=== PATIENT | male | born 1945 | race Caucasian/White ===

== ENCOUNTER 2018-10-21 23:28 | Inpatient (IN) | payer OTHER ==
[~2018-10-21] VITALS: Ht 175.3 cm; Wt 83.0 kg
[2018-10-22] MEDS ORDERED: ACET500T76 PO (02:05)
[2018-10-22] MEDS ORDERED: ALLO100T30 PO (02:06)
[2018-10-22] MEDS ORDERED: AMLO10TA8 PO (02:07)
[2018-10-22] MEDS ORDERED: BUPR200T31 PO (02:09)
[2018-10-22] MEDS ORDERED: COLC0.6T37 PO (02:10)
[2018-10-22] MEDS ORDERED: CYAN500L4 PO (02:18)
[2018-10-22] MEDS ORDERED: CYCL15CA21 PO (02:19)
[2018-10-22] MEDS ORDERED: FOLI-17 PO (02:20)
[2018-10-22] MEDS ORDERED: GABA300C10 PO (02:21)
[2018-10-22] MEDS ORDERED: LOSA1TAB7 PO (02:23)
[2018-10-22] MEDS ORDERED: NICO-487 TD (02:24)
[2018-10-22] MEDS ORDERED: PANT40GR PO (02:26)
[2018-10-22] MEDS ORDERED: PRED5TAB19 PO (02:27)
[2018-10-22] MEDS ORDERED: THIA100V3 PO (02:28)
[2018-10-22] MEDS ORDERED: TRAZ-96 PO (02:29)
[2018-10-22] MEDS ORDERED: PLEASE ENTER HEIGHT AND WEIGHT MC SCH (02:30)
[2018-10-22 03:17] VITALS: BP 159/89
[2018-10-22] MEDS: HEPARIN 5,000 UNITS/ML, 1ML SQ SCH ×3 (04:06→18:06)
[2018-10-22 06:29] VITALS: BP 161/87
[2018-10-22] MEDS ORDERED: PANTOPRAZOLE GRAN. PKT 40 MG PO PRN (06:30)
[2018-10-22] MEDS ORDERED: COLCHICINE 0.6 MG TABLET PO PRN (06:30)
[2018-10-22] MEDS ORDERED: ALLOPURINOL 100 MG TABLET PO PRN (06:30)
[2018-10-22 08:02] LABS: BASOPHILS # (AUTO) 0.03 x10^3/uL (0-0.1); BASOPHILS % (AUTO) 1 % (0-1); EOSINOPHILS # (AUTO) 0.07 x10^3/uL (0-0.4); EOSINOPHILS % (AUTO) 2 % (1-7); LYMPHOCYTES # (AUTO) 1.11 x10^3/uL (1-3.4); LYMPHOCYTES % (AUTO) 26 % (22-44); MD NO; MEAN CORPUSCULAR HEMOGLOBIN 34.5 pg (27.5-34.5); MEAN CORPUSCULAR HGB CONC 33.5 g/dL (33.2-36.2); MEAN CORPUSCULAR VOLUME 103.2 fL (81-97); MEAN PLATELET VOLUME 8.3 fL (7.4-10.4); MONOCYTES % (AUTO) 9 % (2-9); NEUTROPHILS # (AUTO) 2.71 x10^3/uL (1.8-6.8); NEUTROPHILS % (AUTO) 63 % (42-75); PLATELET COUNT 112 x10^3/uL (130-400); RED BLOOD COUNT 3.91 x10^6/uL (4.38-5.82); RED CELL DISTRIBUTION WIDTH 16.1 % (9.4-14.8)
[2018-10-22 08:12] LABS: ALANINE AMINOTRANSFERASE 25 U/L (12-78); ALBUMIN 3.2 g/dL (3.4-5.0); ANION GAP 6 mmol/L (5-15); CALCIUM 8.6 mg/dL (8.5-10.1); CHLORIDE 103 mmol/L (98-107); CREATININE 0.88 mg/dL (0.7-1.3)
[2018-10-22 08:14] LABS: ALKALINE PHOSPHATASE 132 U/L (45-117); BILIRUBIN,TOTAL 1.1 mg/dL (0.2-1.0)
[2018-10-22] MEDS: ONDANSETRON ODT 4 MG PO PRN (09:26)
[2018-10-22] MEDS: CYANOCOBALAMIN 1,000 MCG TABLET PO PRN (09:27)
[2018-10-22] MEDS: BUPROPION SR 150 MG TABLET PO PRN (09:27)
[2018-10-22] MEDS: FOLIC ACID 1 MG TABLET PO PRN (09:27)
[2018-10-22] MEDS: AMLODIPINE 10 MG TAB PO SCH (09:27)
[2018-10-22] MEDS: OXYcodone IR 5MG TABLET PO PRN ×2 (09:41→18:06)
[2018-10-22 11:19] VITALS: BP 178/95
[2018-10-22] MEDS ORDERED: hydrALAzine 20 MG/ML, 1ML IV PRN (13:30)
[2018-10-22] MEDS: NICOTINE 14MG/24 HR PATCH.TD24 TD SCH (15:01)
[2018-10-22] MEDS: THIAMINE 100MG TABLET PO SCH (15:01)
[2018-10-22] MEDS ORDERED: MAGNESIUM SULFATE 3 GM in SODIUM CHLORIDE 0.9% 100 ML IV ONE (16:00)
[2018-10-22] MEDS ORDERED: LORazepam 1MG TABLET PO PRN ×2 (17:30)
[2018-10-22 19:56] VITALS: BP 147/91
[2018-10-22] MEDS: LORazepam 1MG TABLET PO PRN ×2 (21:26→22:06)
[2018-10-23] MEDS: LORazepam 0.5MG TABLET PO PRN (01:02)
[2018-10-23 01:03] VITALS: BP 153/95
[2018-10-23] MEDS: HEPARIN 5,000 UNITS/ML, 1ML SQ SCH ×3 (02:00→17:10)
[2018-10-23] MEDS: LORazepam 1MG TABLET PO PRN ×6 (02:57→23:10)
[2018-10-23 05:22] LABS: BASOPHILS # (AUTO) 0.01 x10^3/uL (0-0.1); BASOPHILS % (AUTO) 0 % (0-1); EOSINOPHILS # (AUTO) 0.11 x10^3/uL (0-0.4); EOSINOPHILS % (AUTO) 2 % (1-7); LYMPHOCYTES # (AUTO) 1.71 x10^3/uL (1-3.4); LYMPHOCYTES % (AUTO) 32 % (22-44); MD NO; MEAN CORPUSCULAR HEMOGLOBIN 34.8 pg (27.5-34.5); MEAN CORPUSCULAR HGB CONC 33.8 g/dL (33.2-36.2); MEAN CORPUSCULAR VOLUME 102.9 fL (81-97); MEAN PLATELET VOLUME 8.3 fL (7.4-10.4); MONOCYTES # (AUTO) 0.32 x10^3/uL (0.2-0.8); MONOCYTES % (AUTO) 6 % (2-9); NEUTROPHILS # (AUTO) 3.15 x10^3/uL (1.8-6.8); NEUTROPHILS % (AUTO) 60 % (42-75); PLATELET COUNT 119 x10^3/uL (130-400); RED BLOOD COUNT 4.15 x10^6/uL (4.38-5.82); RED CELL DISTRIBUTION WIDTH 15.4 % (9.4-14.8)
[2018-10-23 05:28] LABS: CHLORIDE 96 mmol/L (98-107)
[2018-10-23 05:34] LABS: ALANINE AMINOTRANSFERASE 24 U/L (12-78); ALBUMIN 3.5 g/dL (3.4-5.0); ALKALINE PHOSPHATASE 140 U/L (45-117); ANION GAP 5 mmol/L (5-15); BILIRUBIN,TOTAL 1.2 mg/dL (0.2-1.0); CREATININE 0.87 mg/dL (0.7-1.3); TOTAL PROTEIN 6.6 g/dL (6.4-8.2)
--- NOTE | 2018-10-23 06:08 | NUR ---
JONATHAN HAIRSTON H - Fall Risk Medications present and NOT receiving anticoagulants.
[2018-10-23] MEDS ORDERED: POTASSIUM CHLORIDE 20 MEQ TAB.ER.PRT PO ONE (07:00)
[2018-10-23 07:03] VITALS: BP 155/98
[2018-10-23 07:40] VITALS: BP 155/102
[2018-10-23 08:00] VITALS: BP 154/97
[2018-10-23] MEDS: FOLIC ACID 1 MG TABLET PO PRN (08:19)
[2018-10-23] MEDS: AMLODIPINE 10 MG TAB PO SCH (08:19)
[2018-10-23] MEDS: ONDANSETRON ODT 4 MG PO PRN ×2 (08:19→14:54)
[2018-10-23] MEDS: BUPROPION SR 150 MG TABLET PO PRN (08:19)
[2018-10-23] MEDS: CYANOCOBALAMIN 1,000 MCG TABLET PO PRN (08:20)
[2018-10-23] MEDS: THIAMINE 100MG TABLET PO SCH (08:20)
[2018-10-23] MEDS: NICOTINE 14MG/24 HR PATCH.TD24 TD SCH (14:54)
[2018-10-23 18:34] VITALS: BP 162/96
[2018-10-23 23:16] VITALS: BP 139/102
[2018-10-24 02:22] VITALS: BP_SYST 164; BP_SYST 193; BP_DIAS 109; BP_DIAS 118
[2018-10-24 02:40] VITALS: BP 164/109
[2018-10-24] MEDS: HEPARIN 5,000 UNITS/ML, 1ML SQ SCH ×3 (03:07→18:28)
[2018-10-24] MEDS: LORazepam 1MG TABLET PO PRN ×8 (03:08→23:37)
[2018-10-24 07:16] VITALS: BP 140/97
[2018-10-24] MEDS: THIAMINE 100MG TABLET PO SCH (07:25)
[2018-10-24] MEDS: AMLODIPINE 10 MG TAB PO SCH (07:25)
[2018-10-24] MEDS: NICOTINE 14MG/24 HR PATCH.TD24 TD SCH (13:13)
[2018-10-24 13:17] VITALS: BP 165/95
[2018-10-24 19:26] VITALS: BP 143/101
[2018-10-25 02:14] VITALS: BP 138/90
[2018-10-25] MEDS: LORazepam 1MG TABLET PO PRN ×3 (03:28→18:12)
[2018-10-25] MEDS: HEPARIN 5,000 UNITS/ML, 1ML SQ SCH ×3 (03:36→18:01)
[2018-10-25] MEDS: AMLODIPINE 10 MG TAB PO SCH (07:52)
[2018-10-25] MEDS: THIAMINE 100MG TABLET PO SCH ×4 (07:52→20:11)
[2018-10-25 08:11] VITALS: BP 148/80
[2018-10-25] MEDS: OXYcodone IR 5MG TABLET PO PRN (11:11)
[2018-10-25 13:53] VITALS: BP 137/85
[2018-10-25] MEDS: NICOTINE 14MG/24 HR PATCH.TD24 TD SCH (14:04)
[2018-10-25 19:38] VITALS: BP 130/81
[2018-10-25] MEDS: NS + 20MEQ KCL 1,000 ML IV SCH (23:14)
[2018-10-26 01:24] VITALS: BP 143/90
[2018-10-26] MEDS: HEPARIN 5,000 UNITS/ML, 1ML SQ SCH ×3 (02:00→18:00)
[2018-10-26 08:14] VITALS: BP 146/82
[2018-10-26] MEDS: NS + 20MEQ KCL 1,000 ML IV SCH ×2 (10:27→21:05)
[2018-10-26] MEDS: AMLODIPINE 10 MG TAB PO SCH (10:28)
[2018-10-26] MEDS: THIAMINE 100MG TABLET PO SCH ×3 (10:28→21:05)
[2018-10-26 11:30] LABS: BASOPHILS # (AUTO) 0.04 x10^3/uL (0-0.1); BASOPHILS % (AUTO) 1 % (0-1); EOSINOPHILS # (AUTO) 0.13 x10^3/uL (0-0.4); EOSINOPHILS % (AUTO) 2 % (1-7); LYMPHOCYTES # (AUTO) 1.08 x10^3/uL (1-3.4); LYMPHOCYTES % (AUTO) 18 % (22-44); MD NO; MEAN CORPUSCULAR HEMOGLOBIN 34.9 pg (27.5-34.5); MEAN CORPUSCULAR HGB CONC 34.2 g/dL (33.2-36.2); MEAN CORPUSCULAR VOLUME 102.3 fL (81-97); MONOCYTES # (AUTO) 0.45 x10^3/uL (0.2-0.8); MONOCYTES % (AUTO) 7 % (2-9); NEUTROPHILS # (AUTO) 4.47 x10^3/uL (1.8-6.8); NEUTROPHILS % (AUTO) 73 % (42-75); PLATELET COUNT 138 x10^3/uL (130-400); RED BLOOD COUNT 4.56 x10^6/uL (4.38-5.82); RED CELL DISTRIBUTION WIDTH 15.4 % (9.4-14.8)
[2018-10-26 12:26] LABS: ALBUMIN 3.3 g/dL (3.4-5.0); ANION GAP 5 mmol/L (5-15); CALCIUM 8.8 mg/dL (8.5-10.1); CHLORIDE 102 mmol/L (98-107); CREATININE 0.93 mg/dL (0.7-1.3)
[2018-10-26 14:00] VITALS: BP 143/94
[2018-10-26] MEDS: NICOTINE 14MG/24 HR PATCH.TD24 TD SCH (16:39)
[2018-10-26 19:47] VITALS: BP 135/82
[2018-10-26] MEDS: OXYcodone IR 5MG TABLET PO PRN (22:05)
[2018-10-27] MEDS: HEPARIN 5,000 UNITS/ML, 1ML SQ SCH ×3 (01:04→18:00)
[2018-10-27] MEDS: LORazepam 1MG TABLET PO PRN (01:04)
[2018-10-27 01:07] VITALS: BP 146/64
[2018-10-27] MEDS: NS + 20MEQ KCL 1,000 ML IV SCH ×2 (05:45→16:52)
[2018-10-27 08:10] VITALS: BP 139/71
[2018-10-27 10:24] LABS: ALBUMIN 2.9 g/dL (3.4-5.0); ANION GAP 6 mmol/L (5-15); CALCIUM 8.7 mg/dL (8.5-10.1); CHLORIDE 104 mmol/L (98-107); CREATININE 0.83 mg/dL (0.7-1.3)
[2018-10-27] MEDS: THIAMINE 100MG TABLET PO SCH ×3 (10:28→20:40)
[2018-10-27] MEDS: AMLODIPINE 10 MG TAB PO SCH (10:28)
[2018-10-27] MEDS: OXYcodone IR 5MG TABLET PO PRN (10:41)
[2018-10-27 12:58] VITALS: BP 142/63
[2018-10-27] MEDS: NICOTINE 14MG/24 HR PATCH.TD24 TD SCH (16:52)
[2018-10-27 20:01] VITALS: BP 156/91
[2018-10-28 01:50] VITALS: BP 143/90
[2018-10-28] MEDS: HEPARIN 5,000 UNITS/ML, 1ML SQ SCH ×3 (01:56→18:12)
[2018-10-28] MEDS: LORazepam 1MG TABLET PO PRN (04:05)
[2018-10-28 08:13] VITALS: BP 143/65
[2018-10-28] MEDS: AMLODIPINE 10 MG TAB PO SCH (08:40)
[2018-10-28] MEDS: OXYcodone IR 5MG TABLET PO PRN ×3 (08:40→23:23)
[2018-10-28 09:34] LABS: ALBUMIN 3.3 g/dL (3.4-5.0); ANION GAP 7 mmol/L (5-15); CALCIUM 9.1 mg/dL (8.5-10.1); CHLORIDE 98 mmol/L (98-107); CREATININE 0.83 mg/dL (0.7-1.3)
[2018-10-28] MEDS: NICOTINE 14MG/24 HR PATCH.TD24 TD SCH (14:43)
[2018-10-28] MEDS: NS + 20MEQ KCL 1,000 ML IV SCH (14:43)
[2018-10-28 14:48] VITALS: BP 136/81
[2018-10-28 19:57] VITALS: BP 139/67
[2018-10-29] MEDS: HEPARIN 5,000 UNITS/ML, 1ML SQ SCH ×3 (01:34→18:00)
[2018-10-29] MEDS: NS + 20MEQ KCL 1,000 ML IV SCH ×3 (01:34→22:25)
[2018-10-29 01:35] VITALS: BP 143/82
[2018-10-29 07:07] VITALS: BP 141/80
[2018-10-29] MEDS: AMLODIPINE 10 MG TAB PO SCH (09:05)
[2018-10-29 09:11] LABS: ALBUMIN 2.9 g/dL (3.4-5.0); ANION GAP 7 mmol/L (5-15); CALCIUM 8.4 mg/dL (8.5-10.1); CHLORIDE 103 mmol/L (98-107); CREATININE 0.86 mg/dL (0.7-1.3)
[2018-10-29 13:30] VITALS: BP 139/84
[2018-10-29] MEDS: NICOTINE 14MG/24 HR PATCH.TD24 TD SCH (15:34)
[2018-10-29 20:09] VITALS: BP 138/88
[2018-10-29] MEDS: CALCIUM CARBONATE 500 MG TAB.CHEW PO PRN (22:23)
[2018-10-30 00:55] LABS: CLOSTRIDIUM DIFFICILE ANTIGEN NEGATIVE; CLOSTRIDIUM DIFFICILE TOXIN NEGATIVE (Negative)
[2018-10-30 01:07] VITALS: BP 137/76
[2018-10-30] MEDS: HEPARIN 5,000 UNITS/ML, 1ML SQ SCH ×3 (02:15→17:13)
[2018-10-30] MEDS: CALCIUM CARBONATE 500 MG TAB.CHEW PO PRN ×2 (04:16→12:37)
[2018-10-30] MEDS: ONDANSETRON ODT 4 MG PO PRN (04:25)
[2018-10-30 09:38] VITALS: BP 121/70
[2018-10-30 09:59] LABS: ANION GAP 7 mmol/L (5-15); CALCIUM 8.8 mg/dL (8.5-10.1); CHLORIDE 101 mmol/L (98-107); CREATININE 0.89 mg/dL (0.7-1.3)
[2018-10-30] MEDS: AMLODIPINE 10 MG TAB PO SCH (10:34)
[2018-10-30] MEDS: NS + 20MEQ KCL 1,000 ML IV SCH ×2 (10:34→21:27)
[2018-10-30] MEDS ORDERED: SODIUM BICARBONATE 4.0%, 5ML ONE (11:05)
[2018-10-30] MEDS ORDERED: LIDOCAINE-MPF 1%, 5ML ONE (11:05)
[2018-10-30 13:08] LABS: GLUCOSE, CSF 58 mg/dL (40-80); TOTAL PROTEIN,CSF 40 mg/dL (15-45)
[2018-10-30] MEDS: ACETAMINOPHEN 325 MG TABLET PO PRN (17:12)
[2018-10-30] MEDS: NICOTINE 14MG/24 HR PATCH.TD24 TD SCH (17:14)
[2018-10-30 18:06] VITALS: BP 130/61
[2018-10-30 20:10] VITALS: BP 135/64
[2018-10-31 02:08] VITALS: BP 129/76
[2018-10-31] MEDS: HEPARIN 5,000 UNITS/ML, 1ML SQ SCH ×3 (02:11→18:11)
[2018-10-31 05:36] LABS: ALBUMIN 3.2 g/dL (3.4-5.0); ANION GAP 6 mmol/L (5-15); CALCIUM 8.6 mg/dL (8.5-10.1); CHLORIDE 101 mmol/L (98-107); CREATININE 0.89 mg/dL (0.7-1.3)
[2018-10-31] MEDS: AMLODIPINE 10 MG TAB PO SCH (08:13)
[2018-10-31] MEDS: NS + 20MEQ KCL 1,000 ML IV SCH ×2 (08:14→20:04)
[2018-10-31 08:39] VITALS: BP 127/72
[2018-10-31] MEDS: ACETAMINOPHEN 325 MG TABLET PO PRN (09:18)
[2018-10-31] MEDS: ONDANSETRON ODT 4 MG PO PRN (14:28)
[2018-10-31 14:36] VITALS: BP 125/74
[2018-10-31] MEDS: NICOTINE 14MG/24 HR PATCH.TD24 TD SCH (17:03)
[2018-10-31 19:13] VITALS: BP 128/74
[2018-11-01 01:32] VITALS: BP 136/87
[2018-11-01] MEDS: HEPARIN 5,000 UNITS/ML, 1ML SQ SCH ×3 (02:12→17:59)
[2018-11-01] MEDS: NS + 20MEQ KCL 1,000 ML IV SCH ×3 (03:23→23:22)
[2018-11-01 08:28] VITALS: BP 148/77
[2018-11-01] MEDS: AMLODIPINE 10 MG TAB PO SCH (09:40)
[2018-11-01] MEDS: THIAMINE 100MG TABLET PO SCH (09:40)
[2018-11-01] MEDS: ONDANSETRON ODT 4 MG PO PRN ×2 (14:19→20:16)
[2018-11-01 14:22] VITALS: BP 142/77
[2018-11-01] MEDS: NICOTINE 14MG/24 HR PATCH.TD24 TD SCH (17:59)
[2018-11-01] MEDS: BUPROPION SR 150 MG TABLET PO PRN (20:16)
[2018-11-01 20:30] VITALS: BP 145/71
[2018-11-02 01:47] VITALS: BP 145/78
[2018-11-02] MEDS: HEPARIN 5,000 UNITS/ML, 1ML SQ SCH ×3 (02:48→17:30)
[2018-11-02] MEDS: ONDANSETRON ODT 4 MG PO PRN (03:40)
[2018-11-02 06:35] VITALS: BP 130/68
[2018-11-02] MEDS: THIAMINE 100MG TABLET PO SCH (10:48)
[2018-11-02] MEDS: AMLODIPINE 10 MG TAB PO SCH (10:48)
[2018-11-02 12:35] VITALS: BP 136/71
[2018-11-02] MEDS: NICOTINE 14MG/24 HR PATCH.TD24 TD SCH (17:30)
[2018-11-02 19:33] VITALS: BP 129/67
[2018-11-03 01:22] VITALS: BP 133/74
[2018-11-03] MEDS: BUPROPION SR 150 MG TABLET PO PRN (02:24)
[2018-11-03] MEDS: HEPARIN 5,000 UNITS/ML, 1ML SQ SCH ×3 (02:24→16:56)
[2018-11-03 07:12] VITALS: BP 121/66
[2018-11-03] MEDS: AMLODIPINE 10 MG TAB PO SCH (08:26)
[2018-11-03] MEDS: THIAMINE 100MG TABLET PO SCH (09:28)
[2018-11-03] MEDS: ONDANSETRON ODT 4 MG PO PRN ×2 (10:25→21:11)
[2018-11-03 12:38] VITALS: BP 122/69
[2018-11-03] MEDS: NICOTINE 14MG/24 HR PATCH.TD24 TD SCH (16:57)
[2018-11-03 18:40] VITALS: BP 110/58
[2018-11-04] MEDS: HEPARIN 5,000 UNITS/ML, 1ML SQ SCH ×3 (02:15→17:06)
[2018-11-04] MEDS: ACETAMINOPHEN 325 MG TABLET PO PRN (02:24)
[2018-11-04] MEDS: BUPROPION SR 150 MG TABLET PO PRN (02:24)
[2018-11-04 04:20] VITALS: BP 123/69
[2018-11-04 07:54] VITALS: BP 117/66
[2018-11-04] MEDS: THIAMINE 100MG TABLET PO SCH (09:38)
[2018-11-04] MEDS: AMLODIPINE 10 MG TAB PO SCH (09:38)
[2018-11-04] MEDS: ONDANSETRON ODT 4 MG PO PRN ×2 (10:14→22:11)
[2018-11-04 15:55] VITALS: BP 138/66
[2018-11-04] MEDS: NICOTINE 14MG/24 HR PATCH.TD24 TD SCH (17:07)
[2018-11-04 21:18] VITALS: BP 144/67
[2018-11-04] MEDS: CALCIUM CARBONATE 500 MG TAB.CHEW PO PRN (23:57)
[2018-11-05] MEDS: BUPROPION SR 150 MG TABLET PO PRN (01:25)
[2018-11-05] MEDS: HEPARIN 5,000 UNITS/ML, 1ML SQ SCH ×3 (01:33→17:33)
[2018-11-05 02:13] VITALS: BP 130/72
[2018-11-05 07:41] VITALS: BP 127/74
[2018-11-05] MEDS: THIAMINE 100MG TABLET PO SCH (08:36)
[2018-11-05] MEDS: AMLODIPINE 10 MG TAB PO SCH (08:36)
[2018-11-05] MEDS: CYANOCOBALAMIN 1,000 MCG TABLET PO PRN (08:36)
[2018-11-05] MEDS: FOLIC ACID 1 MG TABLET PO PRN (08:37)
[2018-11-05 13:41] VITALS: BP 114/63
[2018-11-05] MEDS ORDERED: THIA100T67 PO (15:43)
[2018-11-05] MEDS ORDERED: FOLI-17 PO (15:43)
[2018-11-05] MEDS ORDERED: CYAN10005 PO (15:43)
[2018-11-05] MEDS ORDERED: AMLO10TA8 PO (15:43)
[2018-11-05] MEDS ORDERED: BUPR150T73 PO (15:43)
[2018-11-05] MEDS ORDERED: ALLO100T30 PO (15:43)
[2018-11-05] MEDS ORDERED: PANT40GR PO (15:43)
[2018-11-05] MEDS ORDERED: NICO-485 TD (15:43)
[2018-11-05] MEDS ORDERED: LORazepam 0.5MG TABLET PO PRN (16:30)
[2018-11-05] MEDS: LORazepam 0.5MG TABLET PO PRN ×2 (17:57→22:31)
[2018-11-05] MEDS: NICOTINE 14MG/24 HR PATCH.TD24 TD SCH (17:57)
[2018-11-05 18:32] VITALS: BP 106/63
[2018-11-06 00:08] VITALS: BP 125/68
[2018-11-06] MEDS: HEPARIN 5,000 UNITS/ML, 1ML SQ SCH ×3 (02:29→16:50)
[2018-11-06 08:22] VITALS: BP 116/69
[2018-11-06] MEDS: NICOTINE 14MG/24 HR PATCH.TD24 TD SCH (08:34)
[2018-11-06] MEDS: LORazepam 0.5MG TABLET PO PRN ×2 (08:35→16:50)
[2018-11-06] MEDS: CYANOCOBALAMIN 1,000 MCG TABLET PO PRN (08:35)
[2018-11-06] MEDS: FOLIC ACID 1 MG TABLET PO PRN (08:35)
[2018-11-06] MEDS: THIAMINE 100MG TABLET PO SCH (08:35)
[2018-11-06] MEDS: AMLODIPINE 10 MG TAB PO SCH (08:35)
[2018-11-06 15:03] VITALS: BP 126/71
[2018-11-06 20:37] VITALS: BP 132/76
[2018-11-06] MEDS: BUPROPION SR 150 MG TABLET PO PRN (23:13)
[2018-11-07 01:58] VITALS: BP 130/72
[2018-11-07] MEDS: HEPARIN 5,000 UNITS/ML, 1ML SQ SCH ×3 (02:23→18:43)
[2018-11-07 07:21] VITALS: BP 139/76
[2018-11-07] MEDS: THIAMINE 100MG TABLET PO SCH (08:22)
[2018-11-07] MEDS: AMLODIPINE 10 MG TAB PO SCH (08:22)
[2018-11-07 14:00] VITALS: BP 140/80
[2018-11-07] MEDS: NICOTINE 14MG/24 HR PATCH.TD24 TD SCH (16:58)
[2018-11-07 18:40] VITALS: BP 131/71
[2018-11-08 00:17] VITALS: BP 124/76
[2018-11-08] MEDS: HEPARIN 5,000 UNITS/ML, 1ML SQ SCH ×3 (02:13→17:39)
[2018-11-08 07:39] VITALS: BP 143/73
[2018-11-08] MEDS: AMLODIPINE 10 MG TAB PO SCH (08:35)
[2018-11-08] MEDS: THIAMINE 100MG TABLET PO SCH (08:35)
[2018-11-08 12:52] VITALS: BP 144/71
[2018-11-08] MEDS: NICOTINE 14MG/24 HR PATCH.TD24 TD SCH (16:38)
[2018-11-08 20:58] VITALS: BP 130/51
[2018-11-09 01:30] VITALS: BP 122/69
[2018-11-09] MEDS: HEPARIN 5,000 UNITS/ML, 1ML SQ SCH ×3 (02:16→17:25)
[2018-11-09 06:40] VITALS: BP 139/72
[2018-11-09] MEDS: AMLODIPINE 10 MG TAB PO SCH (10:22)
[2018-11-09] MEDS: THIAMINE 100MG TABLET PO SCH (10:22)
[2018-11-09 12:45] VITALS: BP 123/69
[2018-11-09] MEDS: NICOTINE 14MG/24 HR PATCH.TD24 TD SCH (17:25)
[2018-11-09 19:06] VITALS: BP 125/69
[2018-11-10] MEDS: BUPROPION SR 150 MG TABLET PO PRN (00:17)
[2018-11-10] MEDS: ONDANSETRON ODT 4 MG PO PRN (00:55)
[2018-11-10 02:16] VITALS: BP 131/78
[2018-11-10] MEDS: HEPARIN 5,000 UNITS/ML, 1ML SQ SCH ×2 (02:23→08:44)
[2018-11-10] MEDS: CALCIUM CARBONATE 500 MG TAB.CHEW PO PRN (02:27)
[2018-11-10 07:23] VITALS: BP 145/75
[2018-11-10] MEDS: THIAMINE 100MG TABLET PO SCH (08:44)
[2018-11-10] MEDS: AMLODIPINE 10 MG TAB PO SCH (08:44)
[2018-11-10 14:43] VITALS: BP 138/74
== END 2018-11-10 16:37 | DRG 56 ==
LOC: 3NW 10-22 00:55
PROVIDERS: ADMIT Family Medicine; ATTEND Family Medicine
PROC: 009U3ZX Drainage of Spinal Canal, Percutaneous Approach, Diagnostic (ICD-10-PCS; principal; 2018-10-30)
PROC: B01B1ZZ Fluoroscopy of Spinal Cord using Low Osmolar Contrast (ICD-10-PCS; 2018-10-30)
DX: G91.0 Communicating hydrocephalus (principal); G93.41 Metabolic encephalopathy; E51.2 Wernicke's encephalopathy; G91.9 Hydrocephalus, unspecified; F10.10 Alcohol abuse, uncomplicated; J44.9 Chronic obstructive pulmonary disease, unspecified; M10.9 Gout, unspecified; M54.9 Dorsalgia, unspecified; R33.9 Retention of urine, unspecified; R53.81 Other malaise; D75.89 Other specified diseases of blood and blood-forming organs; E83.42 Hypomagnesemia; Z92.3 Personal history of irradiation; Z85.46 Personal history of malignant neoplasm of prostate; G62.9 Polyneuropathy, unspecified; E78.5 Hyperlipidemia, unspecified; M19.011 Primary osteoarthritis, right shoulder; E78.00 Pure hypercholesterolemia, unspecified; F03.90 Unspecified dementia, unspecified severity, without behavioral disturbance, psychotic disturbance, mood disturbance, and anxiety; F17.210 Nicotine dependence, cigarettes, uncomplicated; M51.36 Other intervertebral disc degeneration, lumbar region; R29.6 Repeated falls; R32 Unspecified urinary incontinence; W18.39XA Other fall on same level, initial encounter; Y93.89 Activity, other specified; Y92.89 Other specified places as the place of occurrence of the external cause; Y99.8 Other external cause status
CPT/HCPCS: 36415; 70450; 70551; 72125; 72128; 72131; 77003; 80053; 80069; 80307; 82607; 82945; 83735; 84157; 84443; 85025; 87070; 87205; 87252; 87324; 87529; 89051; 99285; G0378; J1644; J3475; J3480; Q0162; 92523-GN

== ENCOUNTER 2020-07-11 17:12 | Inpatient (IN) | payer MEDICAID, MEDICARE, OTHER ==
[~2020-07-11] VITALS: Ht 175.3 cm; Wt 95.7 kg
[~2020-07-11 17:12] MED LIST: ACET500T76 PO; ALLO100T30 PO; AMLO-211 PO; BUPR150T73 PO; BUPR200T31 PO; COLC0.6T37 PO; CYAN-27 PO; CYAN500L4 PO; CYCL15CA21 PO; FOLI-17 PO; GABA300C10 PO; LOSA1TAB7 PO; NICO-485 TD; NICO-587 TD; PANT40GR PO; PRED5TAB19 PO; THIA100T67 PO; THIA100V3 PO; TRAZ-96 PO
--- NOTE | 2020-07-11 17:39 | NUR ---
CONTRACT MANAGEMENT SPECIALIST: PT TO ROOM FROM WALL VIA EMS
[2020-07-11] MEDS ORDERED: LOSA100T14 PO (17:53)
[2020-07-11] MEDS ORDERED: OMEP-110 PO (17:56)
[2020-07-11] MEDS ORDERED: PRAV40TA2 PO (17:56)
[2020-07-11] MEDS ORDERED: FLUTICASONE (17:56)
[2020-07-11] MEDS ORDERED: SYMBICORT INHALER (17:57)
--- NOTE | 2020-07-11 18:04 | NUR ---
ASSUMED CARE OF PATIENT. PATIENT RESTING IN ROOM. VS STABLE. OXYGEN ON. CALL LIGHT IN PLACE. WILL CONTINUE TO MONITOR.
[2020-07-11] MEDS ORDERED: SODIUM CHLORIDE FLUSH 10ML SYR IVF ONE (18:30)
--- NOTE | 2020-07-11 19:04 | NUR ---
REPORT GIVEN TO FAUSTINO MARROQUIN
--- NOTE | 2020-07-11 19:27 | NUR ---
REPORT RECIEVED FROM FAUSTINO WALLACE. PT AMBULATED TO BSC FOR BM, CALL LIGHT WITHIN REACH
[2020-07-11] MEDS ORDERED: CEFTRIAXONE PMX 1GM/50ML 50 ML IVPB ONE (19:30)
[2020-07-11 19:34] LABS: ALANINE AMINOTRANSFERASE 10 U/L (12-78); ALBUMIN 3.1 g/dL (3.4-5.0); ANION GAP 7 mmol/L (5-15); CALCIUM 8.4 mg/dL (8.5-10.1); CHLORIDE 100 mmol/L (98-107); CREATININE 1.29 mg/dL (0.7-1.3)
[2020-07-11 19:39] LABS: ALKALINE PHOSPHATASE 120 U/L (45-117); BILIRUBIN,TOTAL 0.5 mg/dL (0.2-1.0); TOTAL PROTEIN 6.8 g/dL (6.4-8.2); TROPONIN I < 0.015 ng/mL (0.000-0.045)
[2020-07-11] MEDS ORDERED: CEFTRIAXONE PMX 1GM/50ML 50 ML ONE (19:42)
[2020-07-11 20:11] LABS: BASOPHILS % (AUTO) 1 % (0-1); EOSINOPHILS % (AUTO) 1 % (1-7); LYMPHOCYTES % (AUTO) 17 % (22-44); MEAN CORPUSCULAR HEMOGLOBIN 31.2 pg (27.5-34.5); MEAN CORPUSCULAR HGB CONC 34.9 g/dL (33.2-36.2); MEAN PLATELET VOLUME 7.6 fL (7.4-10.4); MONOCYTES % (AUTO) 8 % (2-9); NEUTROPHILS % (AUTO) 74 % (42-75); PLATELET COUNT 153 x10^3/uL (130-400); RED BLOOD COUNT 4.16 x10^6/uL (4.38-5.82); RED CELL DISTRIBUTION WIDTH 13.6 % (9.4-14.8)
[2020-07-11 20:12] LABS: MD NO
[2020-07-11] MEDS ORDERED: AZITHROMYCIN 500 MG in SODIUM CHLORIDE 0.9% 250 ML IV ONE (21:00)
--- NOTE | 2020-07-11 21:45 | NUR ---
PT MEDICATED PER EMAR, RESTING IN [facility], AWAITING HOSPITAL BED, NO OTHER NEEDS AT THIS TIME
--- NOTE | 2020-07-11 22:46 | NUR ---
PT PLACED IN HOSPITAL BED, ON ALL MONITORS
--- NOTE | 2020-07-11 23:17 | NUR ---
PT HAVING TROUBLE URINATING, PT STOOD UP GIVEN URINAL AND ATTEMPTED FOR 5 MIN, TURNED ON WATER IN ATTEMPT TO RELAX PT, AND CANNOT. PT STATES FEELING PRESSURE AND WANTS TO PEE. DR. TIERNEY STATES OK TO DO ONE TIME STRAIGHT CATH.
--- NOTE | 2020-07-11 23:31 | NUR ---
PT AGREEABLE FOR STRAIGHT CATH, PREFORMED WITH STERILE TECHNIQUE, 500 ML WAS TAKEN OUT, PT STATES FEELING MUCH BETTER, NO OTHER NEEDS AT THIS TIME
[2020-07-12] MEDS ORDERED: DOCUSATE 100 MG CAPSULE PO PRN (01:00)
[2020-07-12] MEDS ORDERED: MELATONIN 5 MG TABLET PO PRN (01:00)
[2020-07-12] MEDS ORDERED: LABETALOL 5MG/ML, 20ML IVPush PRN (01:00)
[2020-07-12] MEDS ORDERED: HEPARIN 5,000 UNITS/ML, 1ML ONE ×2 (01:18→09:41)
[2020-07-12] MEDS ORDERED: DEXAMETHASONE 4 MG/ML, 1ML ONE (01:18)
[2020-07-12] MEDS ORDERED: MELATONIN 5 MG TABLET ONE (01:20)
[2020-07-12] MEDS ORDERED: TRAZODONE 50MG TABLET ONE (01:25)
[2020-07-12] MEDS ORDERED: PHARMACY MAY ADJ FOR RENAL FX MC PRN (01:30)
[2020-07-12] MEDS: ALBUTEROL-IPRATROPIUM MDI INH INH SCH ×5 (01:30→20:16)
[2020-07-12] MEDS ORDERED: PROCHLORPERAZINE 10MG TABLET PO PRN (01:30)
[2020-07-12] MEDS: DEXAMETHASONE 4 MG/ML, 1ML IVPush SCH ×2 (01:34→17:17)
[2020-07-12] MEDS: HEPARIN 5,000 UNITS/ML, 1ML SQ SCH ×3 (01:34→17:16)
[2020-07-12] MEDS: TRAZODONE 50MG TABLET PO PRN (01:35)
--- NOTE | 2020-07-12 01:38 | NUR ---
PTMEDICATED PER EMAR, PT GIVEN SLEEPING PILL PER REQUEST. NO OTHER NEEDS AT THIS TIME
--- NOTE | 2020-07-12 03:30 | NUR ---
PT STOOD OUT OF BED TAKING OFF ALL MONITORS, AND STATED "I DONT KNOW HOW TO LIE DOWN". PT EASILY REORIENTED, PLACED BACK IN BED WITH MONITORS IN PLACE, PROVIDED WARM BLANKET, CALL LIGHT WITHIN REACH.
--- NOTE | 2020-07-12 04:53 | NUR ---
PT SLEEPING IN BED, RESP EVEN/UNLABORED, MONITORS AND CALL LIGHT IN PLACE
--- NOTE | 2020-07-12 07:09 | NUR ---
report given to caroline delgadillo
[2020-07-12 09:17] LABS: INTERNATIONAL NORMALIZED RATIO 0.99 (0.93-1.1); PROTHROMBIN TIME 10.5 Seconds (9.6-11.5)
--- NOTE | 2020-07-12 09:34 | NUR ---
DR MATTHEWS BEDSIDE
[2020-07-12] MEDS ORDERED: OMEPRAZOLE 20 MG CAPSULE.DR ONE (09:40)
[2020-07-12] MEDS ORDERED: CHOLECALCIFEROL 5,000u TAB ONE (09:40)
[2020-07-12] MEDS ORDERED: ASCORBIC ACID 500 MG TABLET ONE (09:41)
[2020-07-12] MEDS ORDERED: ZINC SULFATE 220 MG CAPSULE ONE (09:41)
[2020-07-12] MEDS: BUPROPION SR 150 MG TABLET PO PRN (09:44)
[2020-07-12] MEDS: ZINC SULFATE 220 MG CAPSULE PO SCH (09:44)
[2020-07-12] MEDS: LOSARTAN 100 MG TAB PO SCH (09:45)
[2020-07-12] MEDS: ALLOPURINOL 100 MG TABLET PO SCH (09:45)
[2020-07-12] MEDS: AMLODIPINE 10 MG TAB PO SCH (09:45)
[2020-07-12] MEDS: FOLIC ACID 1 MG TABLET PO SCH (09:45)
[2020-07-12] MEDS: OMEPRAZOLE 20 MG CAPSULE.DR PO SCH (09:45)
[2020-07-12] MEDS: ASCORBIC ACID 500 MG TABLET PO SCH ×2 (09:46→20:07)
[2020-07-12] MEDS: CHOLECALCIFEROL 5,000u TAB PO SCH (09:46)
--- NOTE | 2020-07-12 09:59 | NUR ---
PT MEDICATED PER MAR
--- NOTE | 2020-07-12 10:40 | NUR ---
REPORT FROM JANETH AT 1000. ASSUME CARE OF PT AT THAT TIME. PT RESTING, EYES CLOSED, VSS. CALL TO PHARMACY REQUESTING BREO. CALL FROM SON REQUESTING UPDATE. BREO RECEIVED, PROVIDED TO PT.
[2020-07-12] MEDS: FLUTICASONE/VILANTEROL 200-25MCG/INH INH SCH ×2 (10:41→20:08)
--- NOTE | 2020-07-12 11:16 | NUR ---
CALL FROM PT'S SISTER. PT INFORMED OF CALL. 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 PT ASSISTED WITH STANDING WITH URINAL. BED SOILED, ALL SHEETS AND BLANKETS CHANGED. PT REPOSITIONED ON BED. CALL LIGHT WITHIN REACH.
--- NOTE | 2020-07-12 12:36 | NUR ---
CALL FROM ANOTHER PT SISTER. UPDATE PROVIDED WITH PT PERMISSION. MEAL TRAY PROVIDED. CALL LIGHT WITHIN REACH.
--- NOTE | 2020-07-12 13:59 | NUR ---
PT ASSISTED WITH TOILETING AND REPOSITIONING IN BED. PT ASKING FOR SOME MONITORING DEVICES TO BE REMOVED. BERRY GROWER DISCONTINUED, BP CUFF CORD DETACHED. PULSE OX KEPT IN PLACE. AWAITING ADMIT BED.
--- NOTE | 2020-07-12 14:55 | NUR ---
ASSIST PT WITH REPOSITIONING.
--- NOTE | 2020-07-12 16:08 | NUR ---
PT ASSISTED WITH REPOSITIONING IN BED. ANOTHER CALL FROM FAMILY MEMBER, PT AWARE. CALL LIGHT WITHIN REACH. MEAL TRAY ORDERED.
--- NOTE | 2020-07-12 16:27 | NUR ---
REPORT TO [facility] READY FOR TRANSPORT.
[2020-07-12 16:58] VITALS: BP 163/73
[2020-07-12] MEDS ORDERED: DEXAMETHASONE 4 MG/ML, 5ML ONE (17:05)
[2020-07-12] MEDS: NICOTINE 14MG/24 HR PATCH.TD24 TD SCH (17:33)
[2020-07-12 18:58] VITALS: BP 167/88
[2020-07-12] MEDS: PRAVASTATIN 40 MG TABLET PO SCH (20:07)
[2020-07-13 00:42] VITALS: BP 138/66
[2020-07-13] MEDS: HEPARIN 5,000 UNITS/ML, 1ML SQ SCH ×3 (01:59→17:00)
[2020-07-13] MEDS: ALBUTEROL-IPRATROPIUM MDI INH INH SCH ×4 (05:34→20:28)
[2020-07-13 05:43] LABS: BASOPHILS % (AUTO) 1 % (0-1); EOSINOPHILS % (AUTO) 0 % (1-7); LYMPHOCYTES % (AUTO) 8 % (22-44); MEAN CORPUSCULAR HEMOGLOBIN 31.9 pg (27.5-34.5); MEAN CORPUSCULAR HGB CONC 34.7 g/dL (33.2-36.2); MONOCYTES % (AUTO) 4 % (2-9); NEUTROPHILS % (AUTO) 87 % (42-75); PLATELET COUNT 212 x10^3/uL (130-400); RED BLOOD COUNT 4.38 x10^6/uL (4.38-5.82); RED CELL DISTRIBUTION WIDTH 13.9 % (9.4-14.8)
[2020-07-13 05:48] LABS: MD NO
[2020-07-13 05:52] LABS: ANION GAP 6 mmol/L (5-15); CALCIUM 9.4 mg/dL (8.5-10.1); CHLORIDE 105 mmol/L (98-107); CREATININE 1.34 mg/dL (0.7-1.3)
[2020-07-13 06:18] VITALS: BP 166/76
[2020-07-13] MEDS ORDERED: DEXAMETHASONE 4 MG/ML, 5ML ONE (09:13)
[2020-07-13] MEDS: ASCORBIC ACID 500 MG TABLET PO SCH ×2 (09:30→20:27)
[2020-07-13] MEDS: FOLIC ACID 1 MG TABLET PO SCH (09:30)
[2020-07-13] MEDS: ALLOPURINOL 100 MG TABLET PO SCH (09:30)
[2020-07-13] MEDS: ZINC SULFATE 220 MG CAPSULE PO SCH (09:30)
[2020-07-13] MEDS: OMEPRAZOLE 20 MG CAPSULE.DR PO SCH (09:30)
[2020-07-13] MEDS: AMLODIPINE 10 MG TAB PO SCH (09:30)
[2020-07-13] MEDS: LOSARTAN 100 MG TAB PO SCH (09:30)
[2020-07-13] MEDS: CHOLECALCIFEROL 5,000u TAB PO SCH (09:31)
[2020-07-13] MEDS: FLUTICASONE/VILANTEROL 200-25MCG/INH INH SCH (09:33)
[2020-07-13] MEDS: DEXAMETHASONE 4 MG/ML, 1ML IVPush SCH (09:33)
[2020-07-13 12:46] VITALS: BP 160/78
[2020-07-13] MEDS ORDERED: ASCO500T9 PO (14:29)
[2020-07-13] MEDS ORDERED: CHOL500045 PO (14:29)
[2020-07-13] MEDS ORDERED: ZINC220C7 PO (14:29)
[2020-07-13] MEDS ORDERED: FLUT1BLS INH (14:29)
[2020-07-13] MEDS: NICOTINE 14MG/24 HR PATCH.TD24 TD SCH (20:27)
[2020-07-13] MEDS: PRAVASTATIN 40 MG TABLET PO SCH (20:28)
[2020-07-13 21:25] VITALS: BP 151/81
[2020-07-14] MEDS: HEPARIN 5,000 UNITS/ML, 1ML SQ SCH ×3 (01:15→15:48)
[2020-07-14 01:31] VITALS: BP 140/81
[2020-07-14] MEDS: ALBUTEROL-IPRATROPIUM MDI INH INH SCH ×4 (05:30→20:01)
[2020-07-14 08:33] VITALS: BP 165/71
[2020-07-14] MEDS ORDERED: DEXAMETHASONE 4 MG/ML, 5ML ONE (08:45)
[2020-07-14] MEDS: DEXAMETHASONE 4 MG/ML, 1ML IVPush SCH (09:00)
[2020-07-14] MEDS: CEFTRIAXONE PMX 1GM/50ML 50 ML IV SCH (09:16)
[2020-07-14] MEDS: ZINC SULFATE 220 MG CAPSULE PO SCH (09:17)
[2020-07-14] MEDS: AZITHROMYCIN 500 MG TABLET PO SCH (09:17)
[2020-07-14] MEDS: THIAMINE 100MG TABLET PO SCH ×2 (09:17→20:01)
[2020-07-14] MEDS: ALLOPURINOL 100 MG TABLET PO SCH (09:17)
[2020-07-14] MEDS: FOLIC ACID 1 MG TABLET PO SCH (09:18)
[2020-07-14] MEDS: LOSARTAN 100 MG TAB PO SCH (09:18)
[2020-07-14] MEDS: AMLODIPINE 10 MG TAB PO SCH (09:18)
[2020-07-14] MEDS: CHOLECALCIFEROL 5,000u TAB PO SCH (09:18)
[2020-07-14] MEDS: ASCORBIC ACID 500 MG TABLET PO SCH ×2 (09:18→20:01)
[2020-07-14] MEDS: OMEPRAZOLE 20 MG CAPSULE.DR PO SCH (09:19)
[2020-07-14] MEDS: FLUTICASONE/VILANTEROL 200-25MCG/INH INH SCH (09:24)
[2020-07-14 09:35] LABS: ANION GAP 7 mmol/L (5-15); CHLORIDE 104 mmol/L (98-107)
[2020-07-14 09:44] LABS: CREATININE 1.34 mg/dL (0.7-1.3)
[2020-07-14 09:44] LABS: INTERNATIONAL NORMALIZED RATIO 1.01 (0.93-1.1); PROTHROMBIN TIME 10.7 Seconds (9.6-11.5)
[2020-07-14 13:49] VITALS: BP 160/66
[2020-07-14 19:50] VITALS: BP 158/70
[2020-07-14] MEDS: NICOTINE 14MG/24 HR PATCH.TD24 TD SCH (20:00)
[2020-07-14] MEDS: PRAVASTATIN 40 MG TABLET PO SCH (20:01)
[2020-07-14] MEDS: BUPROPION SR 150 MG TABLET PO PRN (22:57)
[2020-07-14] MEDS: ALBUTEROL HFA 90 MCG/SPRAY INH PRN (23:28)
[2020-07-15 00:04] VITALS: BP 160/64
[2020-07-15] MEDS: HEPARIN 5,000 UNITS/ML, 1ML SQ SCH (01:13)
[2020-07-15] MEDS: ALBUTEROL-IPRATROPIUM MDI INH INH SCH ×4 (06:24→20:41)
[2020-07-15 06:29] LABS: CHLORIDE 105 mmol/L (98-107)
[2020-07-15 06:34] LABS: ANION GAP 7 mmol/L (5-15); CALCIUM 8.7 mg/dL (8.5-10.1); CREATININE 1.23 mg/dL (0.7-1.3)
[2020-07-15 07:24] VITALS: BP 173/81
[2020-07-15] MEDS: ALLOPURINOL 100 MG TABLET PO SCH (09:07)
[2020-07-15] MEDS: DEXAMETHASONE 4 MG/ML, 1ML IVPush SCH (09:07)
[2020-07-15] MEDS: LOSARTAN 100 MG TAB PO SCH (09:07)
[2020-07-15] MEDS: OMEPRAZOLE 20 MG CAPSULE.DR PO SCH (09:07)
[2020-07-15] MEDS: ASCORBIC ACID 500 MG TABLET PO SCH ×2 (09:07→20:40)
[2020-07-15] MEDS: AZITHROMYCIN 500 MG TABLET PO SCH (09:07)
[2020-07-15] MEDS: FOLIC ACID 1 MG TABLET PO SCH (09:08)
[2020-07-15] MEDS: THIAMINE 100MG TABLET PO SCH ×2 (09:08→20:41)
[2020-07-15] MEDS: CHOLECALCIFEROL 5,000u TAB PO SCH (09:08)
[2020-07-15] MEDS: AMLODIPINE 10 MG TAB PO SCH (09:08)
[2020-07-15] MEDS: ENOXAPARIN 40 MG/0.4 ML SQ SCH (09:08)
[2020-07-15] MEDS: ZINC SULFATE 220 MG CAPSULE PO SCH (09:08)
[2020-07-15] MEDS: FLUTICASONE/VILANTEROL 200-25MCG/INH INH SCH (09:09)
[2020-07-15] MEDS: CEFTRIAXONE PMX 1GM/50ML 50 ML IV SCH (10:26)
[2020-07-15 13:51] VITALS: BP 179/92
[2020-07-15 19:09] VITALS: BP 151/72
[2020-07-15] MEDS: PRAVASTATIN 40 MG TABLET PO SCH (20:40)
[2020-07-15] MEDS: NICOTINE 14MG/24 HR PATCH.TD24 TD SCH (20:41)
[2020-07-15] MEDS: TRAZODONE 50MG TABLET PO PRN (20:41)
[2020-07-15] MEDS: BUPROPION SR 150 MG TABLET PO PRN (23:12)
[2020-07-16 01:44] VITALS: BP 164/66
[2020-07-16] MEDS: ALBUTEROL-IPRATROPIUM MDI INH INH SCH ×4 (05:23→19:54)
[2020-07-16] MEDS: ENOXAPARIN 40 MG/0.4 ML SQ SCH (07:30)
[2020-07-16 08:00] VITALS: BP 124/78
[2020-07-16] MEDS: FLUTICASONE/VILANTEROL 200-25MCG/INH INH SCH (09:00)
[2020-07-16] MEDS: ZINC SULFATE 220 MG CAPSULE PO SCH (09:02)
[2020-07-16] MEDS: OMEPRAZOLE 20 MG CAPSULE.DR PO SCH (09:02)
[2020-07-16] MEDS: AZITHROMYCIN 500 MG TABLET PO SCH (09:02)
[2020-07-16] MEDS: AMLODIPINE 10 MG TAB PO SCH (09:02)
[2020-07-16] MEDS: THIAMINE 100MG TABLET PO SCH ×2 (09:02→19:54)
[2020-07-16] MEDS: ASCORBIC ACID 500 MG TABLET PO SCH ×2 (09:02→19:53)
[2020-07-16] MEDS: ALLOPURINOL 100 MG TABLET PO SCH (09:02)
[2020-07-16] MEDS: LOSARTAN 100 MG TAB PO SCH (09:02)
[2020-07-16] MEDS: DEXAMETHASONE 4 MG TABLET PO SCH (09:02)
[2020-07-16] MEDS: CHOLECALCIFEROL 5,000u TAB PO SCH (09:03)
[2020-07-16] MEDS: FOLIC ACID 1 MG TABLET PO SCH (09:03)
[2020-07-16] MEDS: CEFTRIAXONE PMX 1GM/50ML 50 ML IV SCH (09:03)
[2020-07-16 11:00] LABS: INTERNATIONAL NORMALIZED RATIO 1.08 (0.93-1.1); PROTHROMBIN TIME 11.4 Seconds (9.6-11.5)
[2020-07-16 13:49] VITALS: BP 149/90
[2020-07-16 19:48] VITALS: BP 129/61
[2020-07-16] MEDS: PRAVASTATIN 40 MG TABLET PO SCH (19:53)
[2020-07-16] MEDS: MELATONIN 5 MG TABLET PO SCH (19:54)
[2020-07-16] MEDS: NICOTINE 14MG/24 HR PATCH.TD24 TD SCH (19:54)
[2020-07-17 01:27] VITALS: BP 146/79
[2020-07-17] MEDS: ALBUTEROL-IPRATROPIUM MDI INH INH SCH ×4 (05:43→19:52)
[2020-07-17 06:42] VITALS: BP 171/77
[2020-07-17] MEDS: ENOXAPARIN 40 MG/0.4 ML SQ SCH (07:30)
[2020-07-17] MEDS: THIAMINE 100MG TABLET PO SCH ×2 (08:06→20:37)
[2020-07-17] MEDS: ZINC SULFATE 220 MG CAPSULE PO SCH (08:06)
[2020-07-17] MEDS: ASCORBIC ACID 500 MG TABLET PO SCH ×2 (08:07→20:37)
[2020-07-17] MEDS: LOSARTAN 100 MG TAB PO SCH (08:07)
[2020-07-17] MEDS: ALLOPURINOL 100 MG TABLET PO SCH (08:07)
[2020-07-17] MEDS: DEXAMETHASONE 4 MG TABLET PO SCH (08:07)
[2020-07-17] MEDS: FLUTICASONE/VILANTEROL 200-25MCG/INH INH SCH (08:07)
[2020-07-17] MEDS: AZITHROMYCIN 500 MG TABLET PO SCH (08:07)
[2020-07-17] MEDS: AMLODIPINE 10 MG TAB PO SCH (08:07)
[2020-07-17] MEDS: CHOLECALCIFEROL 5,000u TAB PO SCH (08:07)
[2020-07-17] MEDS: OMEPRAZOLE 20 MG CAPSULE.DR PO SCH (08:07)
[2020-07-17] MEDS: FOLIC ACID 1 MG TABLET PO SCH (08:07)
[2020-07-17 09:29] LABS: ANION GAP 6 mmol/L (5-15); CALCIUM 8.8 mg/dL (8.5-10.1); CHLORIDE 103 mmol/L (98-107); CREATININE 1.38 mg/dL (0.7-1.3)
[2020-07-17 09:30] LABS: D-DIMER 1.21 ug/mlFEU (0.00-0.52)
[2020-07-17 09:33] LABS: MEAN CORPUSCULAR HEMOGLOBIN 30.8 pg (27.5-34.5); MEAN PLATELET VOLUME 7.7 fL (7.4-10.4); PLATELET COUNT 287 x10^3/uL (130-400); RED BLOOD COUNT 4.85 x10^6/uL (4.38-5.82); RED CELL DISTRIBUTION WIDTH 13.6 % (9.4-14.8)
[2020-07-17 10:33] LABS: MD YES
[2020-07-17 10:34] LABS: <PLATELET ESTIMATE> ADEQUATE; <PLT MORPHOLOGY> NORMAL PLT MORPH; <RBC MORPHOLOGY> NORMAL; BAND#(MANUAL) 0.53 x10^3/uL; BANDS%(MANUAL) 3 % (0-7); LYMPH#(MANUAL) 2.45 x10^3/uL (1-3.4); LYMPHS% (MANUAL) 14 % (22-44); MONOS% (MANUAL) 4 % (2-9); MYELOCYTES# (MANUAL) 0.18 x10^3/uL (0-0); MYELOCYTES% (MANUAL) 1 % (0-0); SEG#(MANUAL) 13.65 x10^3/uL (1.8-6.8); SEGS% (MANUAL) 78 % (42-75)
[2020-07-17] MEDS: CEFTRIAXONE PMX 1GM/50ML 50 ML IV SCH (11:02)
[2020-07-17 12:38] VITALS: BP 159/79
[2020-07-17 18:53] VITALS: BP 120/73
[2020-07-17] MEDS: MELATONIN 5 MG TABLET PO SCH (20:36)
[2020-07-17] MEDS: PRAVASTATIN 40 MG TABLET PO SCH (20:37)
[2020-07-17] MEDS: NICOTINE 14MG/24 HR PATCH.TD24 TD SCH (20:37)
[2020-07-18 01:25] VITALS: BP 133/77
[2020-07-18] MEDS: TRAZODONE 50MG TABLET PO PRN (02:53)
[2020-07-18 04:36] LABS: INTERNATIONAL NORMALIZED RATIO 1.08 (0.93-1.1); PROTHROMBIN TIME 11.4 Seconds (9.6-11.5)
[2020-07-18] MEDS: ALBUTEROL-IPRATROPIUM MDI INH INH SCH ×4 (06:07→20:19)
[2020-07-18 06:52] VITALS: BP 123/76
[2020-07-18] MEDS: ENOXAPARIN 40 MG/0.4 ML SQ SCH (07:30)
[2020-07-18] MEDS: THIAMINE 100MG TABLET PO SCH ×2 (08:31→20:19)
[2020-07-18] MEDS: OMEPRAZOLE 20 MG CAPSULE.DR PO SCH (08:31)
[2020-07-18] MEDS: AMLODIPINE 10 MG TAB PO SCH (08:31)
[2020-07-18] MEDS: AZITHROMYCIN 500 MG TABLET PO SCH (08:31)
[2020-07-18] MEDS: ZINC SULFATE 220 MG CAPSULE PO SCH (08:31)
[2020-07-18] MEDS: ASCORBIC ACID 500 MG TABLET PO SCH ×2 (08:31→20:19)
[2020-07-18] MEDS: ALLOPURINOL 100 MG TABLET PO SCH (08:31)
[2020-07-18] MEDS: DEXAMETHASONE 4 MG TABLET PO SCH (08:31)
[2020-07-18] MEDS: FOLIC ACID 1 MG TABLET PO SCH (08:31)
[2020-07-18] MEDS: CHOLECALCIFEROL 5,000u TAB PO SCH (08:32)
[2020-07-18] MEDS: FLUTICASONE/VILANTEROL 200-25MCG/INH INH SCH (08:32)
[2020-07-18] MEDS: LOSARTAN 100 MG TAB PO SCH (08:32)
[2020-07-18 12:22] VITALS: BP 133/72
[2020-07-18] MEDS: CEFTRIAXONE PMX 1GM/50ML 50 ML IV SCH (12:43)
[2020-07-18 19:11] VITALS: BP 114/72
[2020-07-18] MEDS: NICOTINE 14MG/24 HR PATCH.TD24 TD SCH (20:19)
[2020-07-18] MEDS: PRAVASTATIN 40 MG TABLET PO SCH (20:19)
[2020-07-18] MEDS: MELATONIN 5 MG TABLET PO SCH (20:19)
[2020-07-19] MEDS: TEMAZEPAM 15 MG CAPSULE PO PRN (00:25)
[2020-07-19 00:26] VITALS: BP 145/82
[2020-07-19 03:36] LABS: BASOPHILS % (AUTO) 1 % (0-1); EOSINOPHILS % (AUTO) 0 % (1-7); LYMPHOCYTES % (AUTO) 10 % (22-44); MEAN CORPUSCULAR HEMOGLOBIN 30.2 pg (27.5-34.5); MEAN PLATELET VOLUME 7.2 fL (7.4-10.4); MONOCYTES % (AUTO) 5 % (2-9); NEUTROPHILS % (AUTO) 84 % (42-75); PLATELET COUNT 216 x10^3/uL (130-400); RED BLOOD COUNT 4.37 x10^6/uL (4.38-5.82); RED CELL DISTRIBUTION WIDTH 13.8 % (9.4-14.8)
[2020-07-19 03:48] LABS: D-DIMER 0.97 ug/mlFEU (0.00-0.52)
[2020-07-19 03:49] LABS: C-REACTIVE PROTEIN, QUANT 0.11 mg/dL (0.02-0.49)
[2020-07-19 04:22] LABS: MD SCAN
[2020-07-19] MEDS: ALBUTEROL-IPRATROPIUM MDI INH INH SCH ×4 (06:07→21:21)
[2020-07-19 07:09] VITALS: BP 121/77
[2020-07-19] MEDS: FLUTICASONE/VILANTEROL 200-25MCG/INH INH SCH (08:02)
[2020-07-19] MEDS: ZINC SULFATE 220 MG CAPSULE PO SCH (08:02)
[2020-07-19] MEDS: AMLODIPINE 10 MG TAB PO SCH (08:03)
[2020-07-19] MEDS: OMEPRAZOLE 20 MG CAPSULE.DR PO SCH (08:03)
[2020-07-19] MEDS: ALLOPURINOL 100 MG TABLET PO SCH (08:03)
[2020-07-19] MEDS: ENOXAPARIN 40 MG/0.4 ML SQ SCH (08:03)
[2020-07-19] MEDS: LOSARTAN 100 MG TAB PO SCH (08:04)
[2020-07-19] MEDS: DEXAMETHASONE 4 MG TABLET PO SCH (08:04)
[2020-07-19] MEDS: AZITHROMYCIN 500 MG TABLET PO SCH (08:04)
[2020-07-19] MEDS: CHOLECALCIFEROL 5,000u TAB PO SCH (08:04)
[2020-07-19] MEDS: FOLIC ACID 1 MG TABLET PO SCH (08:04)
[2020-07-19] MEDS: ASCORBIC ACID 500 MG TABLET PO SCH ×2 (08:04→21:16)
[2020-07-19] MEDS: THIAMINE 100MG TABLET PO SCH ×2 (08:04→21:16)
[2020-07-19] MEDS: CEFTRIAXONE PMX 1GM/50ML 50 ML IV SCH (09:19)
[2020-07-19] MEDS: ALBUTEROL HFA 90 MCG/SPRAY INH PRN (11:19)
[2020-07-19 13:35] VITALS: BP 114/68
[2020-07-19] MEDS: NICOTINE 14MG/24 HR PATCH.TD24 TD SCH (21:00)
[2020-07-19 21:01] VITALS: BP 122/78
[2020-07-19] MEDS: MELATONIN 5 MG TABLET PO SCH (21:16)
[2020-07-19] MEDS: PRAVASTATIN 40 MG TABLET PO SCH (21:16)
[2020-07-20 02:33] VITALS: BP 161/84
[2020-07-20 03:50] LABS: INTERNATIONAL NORMALIZED RATIO 1.08 (0.93-1.1); PROTHROMBIN TIME 11.4 Seconds (9.6-11.5)
[2020-07-20 03:52] LABS: ANION GAP 5 mmol/L (5-15); CALCIUM 8.3 mg/dL (8.5-10.1); CHLORIDE 103 mmol/L (98-107)
[2020-07-20 04:11] LABS: ALANINE AMINOTRANSFERASE 71 U/L (12-78); ALKALINE PHOSPHATASE 84 U/L (45-117); BILIRUBIN,TOTAL 0.4 mg/dL (0.2-1.0); CREATININE 1.52 mg/dL (0.7-1.3); TOTAL PROTEIN 5.9 g/dL (6.4-8.2)
[2020-07-20] MEDS: ALBUTEROL-IPRATROPIUM MDI INH INH SCH ×4 (06:15→21:41)
[2020-07-20 07:42] VITALS: BP 118/72
[2020-07-20] MEDS: ENOXAPARIN 40 MG/0.4 ML SQ SCH (08:47)
[2020-07-20] MEDS: FLUTICASONE/VILANTEROL 200-25MCG/INH INH SCH (08:48)
[2020-07-20] MEDS: DEXAMETHASONE 4 MG TABLET PO SCH (08:48)
[2020-07-20] MEDS: LOSARTAN 100 MG TAB PO SCH (08:49)
[2020-07-20] MEDS: ALLOPURINOL 100 MG TABLET PO SCH (08:49)
[2020-07-20] MEDS: ASCORBIC ACID 500 MG TABLET PO SCH ×2 (08:49→21:40)
[2020-07-20] MEDS: AZITHROMYCIN 500 MG TABLET PO SCH (08:49)
[2020-07-20] MEDS: FOLIC ACID 1 MG TABLET PO SCH (08:49)
[2020-07-20] MEDS: AMLODIPINE 10 MG TAB PO SCH (08:49)
[2020-07-20] MEDS: OMEPRAZOLE 20 MG CAPSULE.DR PO SCH (08:49)
[2020-07-20] MEDS: CHOLECALCIFEROL 5,000u TAB PO SCH (08:49)
[2020-07-20] MEDS: THIAMINE 100MG TABLET PO SCH ×2 (08:49→21:41)
[2020-07-20] MEDS: ZINC SULFATE 220 MG CAPSULE PO SCH (08:49)
[2020-07-20] MEDS: CEFTRIAXONE PMX 1GM/50ML 50 ML IV SCH (11:16)
[2020-07-20 12:40] VITALS: BP 121/77
--- NOTE | 2020-07-20 16:52 | NUR ---
Green nursing sheet initiated 1) up to chair 2-3 times a day 2) walk with nurses and FWW 2-3 days notified RN Addendum: 07/20/20 at 1656 by Bree Rojo PT Amended: Links added.
[2020-07-20] MEDS: NICOTINE 14MG/24 HR PATCH.TD24 TD SCH (21:00)
[2020-07-20 21:29] VITALS: BP 141/77
[2020-07-20] MEDS: MELATONIN 5 MG TABLET PO SCH (21:40)
[2020-07-20] MEDS: PRAVASTATIN 40 MG TABLET PO SCH (21:40)
[2020-07-21 00:59] VITALS: BP 165/71
[2020-07-21] MEDS: ALBUTEROL-IPRATROPIUM MDI INH INH SCH ×4 (05:43→22:52)
[2020-07-21 08:38] LABS: MEAN CORPUSCULAR HGB CONC 33.2 g/dL (33.2-36.2); MEAN PLATELET VOLUME 7.4 fL (7.4-10.4); PLATELET COUNT 196 x10^3/uL (130-400); RED BLOOD COUNT 4.47 x10^6/uL (4.38-5.82); RED CELL DISTRIBUTION WIDTH 13.4 % (9.4-14.8)
[2020-07-21 08:50] VITALS: BP 150/72
[2020-07-21] MEDS: ENOXAPARIN 40 MG/0.4 ML SQ SCH (09:26)
[2020-07-21 09:27] LABS: MD YES
[2020-07-21] MEDS: LOSARTAN 100 MG TAB PO SCH (09:27)
[2020-07-21] MEDS: AMLODIPINE 10 MG TAB PO SCH (09:27)
[2020-07-21] MEDS: OMEPRAZOLE 20 MG CAPSULE.DR PO SCH (09:27)
[2020-07-21] MEDS: FOLIC ACID 1 MG TABLET PO SCH (09:27)
[2020-07-21] MEDS: DEXAMETHASONE 4 MG TABLET PO SCH (09:27)
[2020-07-21] MEDS: ALLOPURINOL 100 MG TABLET PO SCH (09:27)
[2020-07-21] MEDS: ZINC SULFATE 220 MG CAPSULE PO SCH (09:27)
[2020-07-21] MEDS: FLUTICASONE/VILANTEROL 200-25MCG/INH INH SCH (09:27)
[2020-07-21] MEDS: AZITHROMYCIN 500 MG TABLET PO SCH (09:27)
[2020-07-21] MEDS: ASCORBIC ACID 500 MG TABLET PO SCH ×2 (09:27→22:53)
[2020-07-21] MEDS: THIAMINE 100MG TABLET PO SCH ×2 (09:28→22:52)
[2020-07-21] MEDS: CHOLECALCIFEROL 5,000u TAB PO SCH (09:28)
[2020-07-21 09:36] LABS: BAND#(MANUAL) 0.96 x10^3/uL; BANDS%(MANUAL) 5 % (0-7); EOS#(MANUAL) 0.19 x10^3/uL (0.0-0.4); EOS% (MANUAL) 1 % (1-7); LYMPH#(MANUAL) 1.54 x10^3/uL (1-3.4); LYMPHS% (MANUAL) 8 % (22-44); METAMYELOCYTES# (MANUAL) 0.19 x10^3/uL (0-0); METAMYELOCYTES% (MANUAL) 1 % (0-1); MONOS#(MANUAL) 0.58 x10^3/uL (0.3-2.7); MONOS% (MANUAL) 3 % (2-9); MYELOCYTES# (MANUAL) 0.19 x10^3/uL (0-0); MYELOCYTES% (MANUAL) 1 % (0-0); SEGS% (MANUAL) 81 % (42-75)
[2020-07-21 09:37] LABS: <PLATELET ESTIMATE> ADEQUATE; <PLT MORPHOLOGY> NORMAL PLT MORPH; <RBC MORPHOLOGY> NORMAL; TOXIC GRAN 1+
[2020-07-21] MEDS: CEFTRIAXONE PMX 1GM/50ML 50 ML IV SCH (12:28)
[2020-07-21 13:42] VITALS: BP 135/76
[2020-07-21 19:37] VITALS: BP 114/73
[2020-07-21] MEDS: PRAVASTATIN 40 MG TABLET PO SCH (22:53)
[2020-07-21] MEDS: MELATONIN 5 MG TABLET PO SCH (22:53)
[2020-07-21] MEDS: NICOTINE 14MG/24 HR PATCH.TD24 TD SCH (23:17)
[2020-07-22 01:00] VITALS: BP 161/79
[2020-07-22] MEDS: ALBUTEROL-IPRATROPIUM MDI INH INH SCH ×4 (06:12→19:42)
[2020-07-22 07:46] VITALS: BP 152/78
[2020-07-22] MEDS: LOSARTAN 100 MG TAB PO SCH (08:18)
[2020-07-22] MEDS: FLUTICASONE/VILANTEROL 200-25MCG/INH INH SCH (08:18)
[2020-07-22] MEDS: ASCORBIC ACID 500 MG TABLET PO SCH ×2 (08:18→19:39)
[2020-07-22] MEDS: THIAMINE 100MG TABLET PO SCH ×2 (08:19→19:39)
[2020-07-22] MEDS: OMEPRAZOLE 20 MG CAPSULE.DR PO SCH (08:19)
[2020-07-22] MEDS: ENOXAPARIN 40 MG/0.4 ML SQ SCH (08:19)
[2020-07-22] MEDS: ZINC SULFATE 220 MG CAPSULE PO SCH (08:19)
[2020-07-22] MEDS: FOLIC ACID 1 MG TABLET PO SCH (08:19)
[2020-07-22] MEDS: CHOLECALCIFEROL 5,000u TAB PO SCH (08:19)
[2020-07-22] MEDS: AMLODIPINE 10 MG TAB PO SCH (08:19)
[2020-07-22 09:29] LABS: INTERNATIONAL NORMALIZED RATIO 1.07 (0.93-1.1); PROTHROMBIN TIME 11.3 Seconds (9.6-11.5)
[2020-07-22 14:23] VITALS: BP 112/63
[2020-07-22 19:36] VITALS: BP 111/59
[2020-07-22] MEDS: TRAZODONE 50MG TABLET PO PRN (19:39)
[2020-07-22] MEDS: MELATONIN 5 MG TABLET PO SCH (19:39)
[2020-07-22] MEDS: NICOTINE 14MG/24 HR PATCH.TD24 TD SCH (19:39)
[2020-07-22] MEDS: PRAVASTATIN 40 MG TABLET PO SCH (19:39)
[2020-07-23 02:14] VITALS: BP 145/70
[2020-07-23] MEDS: ALBUTEROL-IPRATROPIUM MDI INH INH SCH ×4 (05:53→20:34)
[2020-07-23 08:10] VITALS: BP 120/73
[2020-07-23] MEDS: ENOXAPARIN 40 MG/0.4 ML SQ SCH (09:00)
[2020-07-23] MEDS: FOLIC ACID 1 MG TABLET PO SCH (12:01)
[2020-07-23] MEDS: AMLODIPINE 10 MG TAB PO SCH (12:02)
[2020-07-23] MEDS: ZINC SULFATE 220 MG CAPSULE PO SCH (12:02)
[2020-07-23] MEDS: OMEPRAZOLE 20 MG CAPSULE.DR PO SCH (12:02)
[2020-07-23] MEDS: CHOLECALCIFEROL 5,000u TAB PO SCH (12:02)
[2020-07-23] MEDS: ASCORBIC ACID 500 MG TABLET PO SCH ×2 (12:02→20:33)
[2020-07-23] MEDS: LOSARTAN 100 MG TAB PO SCH (12:02)
[2020-07-23] MEDS: THIAMINE 100MG TABLET PO SCH ×2 (12:02→20:34)
[2020-07-23] MEDS: FLUTICASONE/VILANTEROL 200-25MCG/INH INH SCH (12:03)
[2020-07-23 12:34] VITALS: BP 127/72
[2020-07-23 19:04] VITALS: BP 115/74
[2020-07-23] MEDS: TRAZODONE 50MG TABLET PO PRN (20:33)
[2020-07-23] MEDS: MELATONIN 5 MG TABLET PO SCH (20:34)
[2020-07-23] MEDS: PRAVASTATIN 40 MG TABLET PO SCH (20:34)
[2020-07-23] MEDS: NICOTINE 14MG/24 HR PATCH.TD24 TD SCH (20:42)
[2020-07-24 00:17] VITALS: BP 139/70
[2020-07-24 05:29] LABS: CREATININE 1.41 mg/dL (0.7-1.3)
[2020-07-24 05:31] LABS: INTERNATIONAL NORMALIZED RATIO 1.03 (0.93-1.1); PROTHROMBIN TIME 10.9 Seconds (9.6-11.5)
[2020-07-24] MEDS: ALBUTEROL-IPRATROPIUM MDI INH INH SCH ×4 (05:50→23:34)
[2020-07-24 07:56] VITALS: BP 133/80
[2020-07-24] MEDS: ENOXAPARIN 40 MG/0.4 ML SQ SCH (09:00)
[2020-07-24] MEDS: FOLIC ACID 1 MG TABLET PO SCH (09:27)
[2020-07-24] MEDS: AMLODIPINE 10 MG TAB PO SCH (09:28)
[2020-07-24] MEDS: LOSARTAN 100 MG TAB PO SCH (09:28)
[2020-07-24] MEDS: OMEPRAZOLE 20 MG CAPSULE.DR PO SCH (09:28)
[2020-07-24] MEDS: FLUTICASONE/VILANTEROL 200-25MCG/INH INH SCH (09:30)
[2020-07-24] MEDS: ACETAMINOPHEN 325 MG TABLET PO PRN (10:30)
[2020-07-24 12:00] VITALS: BP 140/86
--- NOTE | 2020-07-24 18:15 | NUR ---
Green nursing activity sheet was completed for last and Friday but not Friday and Friday. Addendum: 07/24/20 at 1816 by Bree Rojo PT Amended: Links added.
[2020-07-24 19:16] VITALS: BP 122/69
[2020-07-24] MEDS: MELATONIN 5 MG TABLET PO SCH (21:00)
[2020-07-24] MEDS: NICOTINE 14MG/24 HR PATCH.TD24 TD SCH (21:00)
[2020-07-24] MEDS: PRAVASTATIN 40 MG TABLET PO SCH (22:10)
[2020-07-25 00:23] VITALS: BP 116/76
[2020-07-25] MEDS: ALBUTEROL-IPRATROPIUM MDI INH INH SCH ×4 (06:02→21:23)
[2020-07-25 07:34] VITALS: BP 142/70
[2020-07-25] MEDS: ENOXAPARIN 40 MG/0.4 ML SQ SCH (09:00)
[2020-07-25] MEDS: FOLIC ACID 1 MG TABLET PO SCH (10:43)
[2020-07-25] MEDS: AMLODIPINE 10 MG TAB PO SCH (10:43)
[2020-07-25] MEDS: LOSARTAN 100 MG TAB PO SCH (10:43)
[2020-07-25] MEDS: FLUTICASONE/VILANTEROL 200-25MCG/INH INH SCH (10:43)
[2020-07-25] MEDS: OMEPRAZOLE 20 MG CAPSULE.DR PO SCH (10:43)
[2020-07-25 12:57] VITALS: BP 116/73
[2020-07-25 19:32] VITALS: BP 107/67
[2020-07-25] MEDS: PRAVASTATIN 40 MG TABLET PO SCH (21:24)
[2020-07-25] MEDS: NICOTINE 14MG/24 HR PATCH.TD24 TD SCH (21:24)
[2020-07-25] MEDS: MELATONIN 5 MG TABLET PO SCH (21:24)
[2020-07-26 01:36] VITALS: BP 121/75
[2020-07-26] MEDS: ALBUTEROL-IPRATROPIUM MDI INH INH SCH ×4 (06:24→21:56)
[2020-07-26 07:13] LABS: INTERNATIONAL NORMALIZED RATIO 1.01 (0.93-1.1); PROTHROMBIN TIME 10.7 Seconds (9.6-11.5)
[2020-07-26 07:54] VITALS: BP 130/68
[2020-07-26] MEDS: OMEPRAZOLE 20 MG CAPSULE.DR PO SCH (09:34)
[2020-07-26] MEDS: FLUTICASONE/VILANTEROL 200-25MCG/INH INH SCH (09:34)
[2020-07-26] MEDS: AMLODIPINE 10 MG TAB PO SCH (09:34)
[2020-07-26] MEDS: FOLIC ACID 1 MG TABLET PO SCH (09:34)
[2020-07-26] MEDS: ENOXAPARIN 40 MG/0.4 ML SQ SCH (09:34)
[2020-07-26] MEDS: LOSARTAN 100 MG TAB PO SCH (09:34)
[2020-07-26 12:55] VITALS: BP 128/72
[2020-07-26 19:14] VITALS: BP 106/70
[2020-07-26] MEDS: ALBUTEROL HFA 90 MCG/SPRAY INH PRN (21:53)
[2020-07-26] MEDS: MELATONIN 5 MG TABLET PO SCH (21:53)
[2020-07-26] MEDS: PRAVASTATIN 40 MG TABLET PO SCH (21:53)
[2020-07-26] MEDS: NICOTINE 14MG/24 HR PATCH.TD24 TD SCH (21:53)
[2020-07-27 00:15] VITALS: BP 135/65
[2020-07-27] MEDS: ALBUTEROL-IPRATROPIUM MDI INH INH SCH ×4 (05:47→20:10)
[2020-07-27 06:44] VITALS: BP 107/67
[2020-07-27 07:15] LABS: CREATININE 1.56 mg/dL (0.7-1.3)
[2020-07-27 08:33] LABS: BASOPHILS % (AUTO) 1 % (0-1); EOSINOPHILS % (AUTO) 1 % (1-7); LYMPHOCYTES % (AUTO) 13 % (22-44); MEAN CORPUSCULAR HEMOGLOBIN 30.6 pg (27.5-34.5); MEAN CORPUSCULAR HGB CONC 34.2 g/dL (33.2-36.2); MEAN PLATELET VOLUME 8.1 fL (7.4-10.4); MONOCYTES % (AUTO) 8 % (2-9); NEUTROPHILS % (AUTO) 78 % (42-75); PLATELET COUNT 147 x10^3/uL (130-400); RED BLOOD COUNT 3.83 x10^6/uL (4.38-5.82); RED CELL DISTRIBUTION WIDTH 13.5 % (9.4-14.8)
[2020-07-27 08:34] LABS: ALBUMIN 2.5 g/dL (3.4-5.0); ANION GAP 3 mmol/L (5-15); CALCIUM 8.3 mg/dL (8.5-10.1); CHLORIDE 109 mmol/L (98-107); MD NO
[2020-07-27 08:37] LABS: ALANINE AMINOTRANSFERASE 20 U/L (12-78); ALKALINE PHOSPHATASE 77 U/L (45-117); BILIRUBIN,TOTAL 0.5 mg/dL (0.2-1.0); CREATININE 1.53 mg/dL (0.7-1.3); TOTAL PROTEIN 5.7 g/dL (6.4-8.2)
[2020-07-27] MEDS: FLUTICASONE/VILANTEROL 200-25MCG/INH INH SCH (10:16)
[2020-07-27] MEDS: FOLIC ACID 1 MG TABLET PO SCH (10:17)
[2020-07-27] MEDS: ENOXAPARIN 40 MG/0.4 ML SQ SCH (10:17)
[2020-07-27] MEDS: LOSARTAN 100 MG TAB PO SCH (10:17)
[2020-07-27] MEDS: AMLODIPINE 10 MG TAB PO SCH (10:17)
[2020-07-27] MEDS: OMEPRAZOLE 20 MG CAPSULE.DR PO SCH (10:17)
[2020-07-27 13:56] VITALS: BP 98/63
[2020-07-27] MEDS: NICOTINE 14MG/24 HR PATCH.TD24 TD SCH (20:01)
[2020-07-27] MEDS: MELATONIN 5 MG TABLET PO SCH (20:10)
[2020-07-27] MEDS: PRAVASTATIN 40 MG TABLET PO SCH (20:10)
[2020-07-27 20:15] VITALS: BP 137/84
[2020-07-28] MEDS: ALBUTEROL-IPRATROPIUM MDI INH INH SCH ×4 (05:22→21:09)
[2020-07-28 08:38] VITALS: BP 114/72
[2020-07-28] MEDS: FOLIC ACID 1 MG TABLET PO SCH (08:45)
[2020-07-28] MEDS: OMEPRAZOLE 20 MG CAPSULE.DR PO SCH (08:45)
[2020-07-28] MEDS: FLUTICASONE/VILANTEROL 200-25MCG/INH INH SCH (08:45)
[2020-07-28] MEDS: LOSARTAN 100 MG TAB PO SCH (08:45)
[2020-07-28] MEDS: AMLODIPINE 10 MG TAB PO SCH (08:45)
[2020-07-28] MEDS: ENOXAPARIN 40 MG/0.4 ML SQ SCH (08:46)
[2020-07-28 09:30] LABS: INTERNATIONAL NORMALIZED RATIO 0.94 (0.93-1.1)
[2020-07-28 14:41] VITALS: BP 166/76
[2020-07-28] MEDS: NICOTINE 14MG/24 HR PATCH.TD24 TD SCH (18:57)
[2020-07-28 20:06] VITALS: BP 122/74
[2020-07-28] MEDS: PRAVASTATIN 40 MG TABLET PO SCH (21:09)
[2020-07-28] MEDS: MELATONIN 5 MG TABLET PO SCH (21:09)
[2020-07-29 01:08] VITALS: BP 110/71
[2020-07-29] MEDS: ALBUTEROL-IPRATROPIUM MDI INH INH SCH ×4 (05:31→20:33)
[2020-07-29 07:00] VITALS: BP 120/62
[2020-07-29] MEDS: FOLIC ACID 1 MG TABLET PO SCH (07:56)
[2020-07-29] MEDS: OMEPRAZOLE 20 MG CAPSULE.DR PO SCH (07:56)
[2020-07-29] MEDS: FLUTICASONE/VILANTEROL 200-25MCG/INH INH SCH (07:56)
[2020-07-29] MEDS: LOSARTAN 100 MG TAB PO SCH (07:56)
[2020-07-29] MEDS: AMLODIPINE 10 MG TAB PO SCH (07:56)
[2020-07-29] MEDS: ENOXAPARIN 40 MG/0.4 ML SQ SCH (07:57)
[2020-07-29 12:34] VITALS: BP 101/67
[2020-07-29 18:37] VITALS: BP 121/67
[2020-07-29] MEDS: MELATONIN 5 MG TABLET PO SCH (20:32)
[2020-07-29] MEDS: PRAVASTATIN 40 MG TABLET PO SCH (20:33)
[2020-07-29] MEDS: NICOTINE 14MG/24 HR PATCH.TD24 TD SCH (20:33)
[2020-07-30] MEDS: TRAZODONE 50MG TABLET PO PRN (00:13)
[2020-07-30 01:02] VITALS: BP 108/57
[2020-07-30] MEDS: ALBUTEROL-IPRATROPIUM MDI INH INH SCH ×4 (06:06→19:41)
[2020-07-30 08:48] VITALS: BP 147/73
[2020-07-30] MEDS: FLUTICASONE/VILANTEROL 200-25MCG/INH INH SCH (08:54)
[2020-07-30] MEDS: FOLIC ACID 1 MG TABLET PO SCH (08:54)
[2020-07-30] MEDS: ENOXAPARIN 40 MG/0.4 ML SQ SCH (08:54)
[2020-07-30] MEDS: OMEPRAZOLE 20 MG CAPSULE.DR PO SCH (08:55)
[2020-07-30] MEDS: AMLODIPINE 10 MG TAB PO SCH (08:55)
[2020-07-30] MEDS: LOSARTAN 100 MG TAB PO SCH (08:55)
[2020-07-30 10:31] LABS: CREATININE 1.29 mg/dL (0.7-1.3)
[2020-07-30 10:32] LABS: INTERNATIONAL NORMALIZED RATIO 0.96 (0.93-1.1); PROTHROMBIN TIME 10.2 Seconds (9.6-11.5)
[2020-07-30 13:44] VITALS: BP 98/65
[2020-07-30] MEDS: NICOTINE 14MG/24 HR PATCH.TD24 TD SCH (18:50)
[2020-07-30 18:58] VITALS: BP 103/66
[2020-07-30] MEDS: PRAVASTATIN 40 MG TABLET PO SCH (19:40)
[2020-07-30] MEDS: MELATONIN 5 MG TABLET PO SCH (19:40)
[2020-07-31 01:02] VITALS: BP 115/67
[2020-07-31] MEDS: ALBUTEROL-IPRATROPIUM MDI INH INH SCH ×4 (05:24→20:34)
[2020-07-31 07:41] VITALS: BP 151/69
[2020-07-31] MEDS: ENOXAPARIN 40 MG/0.4 ML SQ SCH (07:47)
[2020-07-31] MEDS: FLUTICASONE/VILANTEROL 200-25MCG/INH INH SCH (07:47)
[2020-07-31] MEDS: OMEPRAZOLE 20 MG CAPSULE.DR PO SCH (07:48)
[2020-07-31] MEDS: AMLODIPINE 10 MG TAB PO SCH (07:48)
[2020-07-31] MEDS: FOLIC ACID 1 MG TABLET PO SCH (07:48)
[2020-07-31] MEDS: LOSARTAN 100 MG TAB PO SCH (07:48)
[2020-07-31 14:22] VITALS: BP_SYST 125; BP_SYST 135; BP_DIAS 76
[2020-07-31 18:53] VITALS: BP 117/73
[2020-07-31] MEDS: NICOTINE 14MG/24 HR PATCH.TD24 TD SCH (20:27)
[2020-07-31] MEDS: MELATONIN 5 MG TABLET PO SCH (20:33)
[2020-07-31] MEDS: PRAVASTATIN 40 MG TABLET PO SCH (20:33)
[2020-07-31] MEDS: TRAZODONE 50MG TABLET PO PRN (20:33)
[2020-08-01 01:07] VITALS: BP 109/70
[2020-08-01 05:22] LABS: PROTHROMBIN TIME 10.6 Seconds (9.6-11.5)
[2020-08-01] MEDS: ALBUTEROL-IPRATROPIUM MDI INH INH SCH ×4 (05:52→20:58)
[2020-08-01 07:52] VITALS: BP 124/66
[2020-08-01] MEDS: FLUTICASONE/VILANTEROL 200-25MCG/INH INH SCH (08:01)
[2020-08-01] MEDS: OMEPRAZOLE 20 MG CAPSULE.DR PO SCH (08:01)
[2020-08-01] MEDS: LOSARTAN 100 MG TAB PO SCH (08:01)
[2020-08-01] MEDS: AMLODIPINE 10 MG TAB PO SCH (08:01)
[2020-08-01] MEDS: FOLIC ACID 1 MG TABLET PO SCH (08:01)
[2020-08-01] MEDS: ENOXAPARIN 40 MG/0.4 ML SQ SCH (08:02)
[2020-08-01 13:15] VITALS: BP 108/57
[2020-08-01] MEDS ORDERED: POLYETHYLENE GLYCOL 17 GM PACKET NG PRN (16:30)
[2020-08-01] MEDS ORDERED: BISACODYL 10 MG SUPP PR PRN (16:30)
[2020-08-01] MEDS ORDERED: PINK LADY ENEMA 490 ML BOTTLE PR PRN (16:30)
[2020-08-01] MEDS: LORazepam 0.5MG TABLET PO PRN (17:02)
[2020-08-01 18:37] VITALS: BP 132/74
[2020-08-01] MEDS: NICOTINE 14MG/24 HR PATCH.TD24 TD SCH (20:05)
[2020-08-01] MEDS: PRAVASTATIN 40 MG TABLET PO SCH (20:56)
[2020-08-01] MEDS: TRAZODONE 50MG TABLET PO PRN (20:56)
[2020-08-01] MEDS: MELATONIN 5 MG TABLET PO SCH (20:56)
[2020-08-02 00:37] VITALS: BP 137/66
[2020-08-02] MEDS: ALBUTEROL-IPRATROPIUM MDI INH INH SCH ×4 (06:13→20:48)
[2020-08-02 06:39] LABS: CREATININE 1.34 mg/dL (0.7-1.3)
[2020-08-02 09:06] VITALS: BP 107/68
[2020-08-02] MEDS: AMLODIPINE 10 MG TAB PO SCH (09:15)
[2020-08-02] MEDS: OMEPRAZOLE 20 MG CAPSULE.DR PO SCH (09:15)
[2020-08-02] MEDS: LOSARTAN 100 MG TAB PO SCH (09:15)
[2020-08-02] MEDS: SENNOSIDES 8.6 MG TABLET PO SCH (09:15)
[2020-08-02] MEDS: FOLIC ACID 1 MG TABLET PO SCH (09:15)
[2020-08-02] MEDS: ENOXAPARIN 40 MG/0.4 ML SQ SCH (09:18)
[2020-08-02] MEDS: FLUTICASONE/VILANTEROL 200-25MCG/INH INH SCH (09:23)
[2020-08-02 12:48] VITALS: BP 107/66
[2020-08-02 20:22] VITALS: BP 127/67
[2020-08-02] MEDS: NICOTINE 14MG/24 HR PATCH.TD24 TD SCH (20:48)
[2020-08-02] MEDS: PRAVASTATIN 40 MG TABLET PO SCH (20:52)
[2020-08-02] MEDS: TRAZODONE 50MG TABLET PO PRN (20:52)
[2020-08-02] MEDS: MELATONIN 5 MG TABLET PO SCH (20:52)
[2020-08-03 00:27] VITALS: BP 124/67
[2020-08-03] MEDS: ALBUTEROL-IPRATROPIUM MDI INH INH SCH ×4 (05:44→21:01)
[2020-08-03 06:53] VITALS: BP 128/80
[2020-08-03 07:15] LABS: PROTHROMBIN TIME 10.6 Seconds (9.6-11.5)
[2020-08-03] MEDS: AMLODIPINE 10 MG TAB PO SCH (08:33)
[2020-08-03] MEDS: FOLIC ACID 1 MG TABLET PO SCH (08:33)
[2020-08-03] MEDS: LOSARTAN 100 MG TAB PO SCH (08:33)
[2020-08-03] MEDS: SENNOSIDES 8.6 MG TABLET PO SCH (08:33)
[2020-08-03] MEDS: OMEPRAZOLE 20 MG CAPSULE.DR PO SCH (08:33)
[2020-08-03] MEDS: FLUTICASONE/VILANTEROL 200-25MCG/INH INH SCH (08:34)
[2020-08-03] MEDS: ENOXAPARIN 40 MG/0.4 ML SQ SCH (08:36)
[2020-08-03 12:52] VITALS: BP 132/69
[2020-08-03 19:53] VITALS: BP 107/71
[2020-08-03] MEDS: NICOTINE 14MG/24 HR PATCH.TD24 TD SCH (20:55)
[2020-08-03] MEDS: ACETAMINOPHEN 325 MG TABLET PO PRN (21:01)
[2020-08-03] MEDS: PRAVASTATIN 40 MG TABLET PO SCH (21:01)
[2020-08-03] MEDS: MELATONIN 5 MG TABLET PO SCH (21:01)
[2020-08-04 01:59] VITALS: BP 128/67
[2020-08-04] MEDS: ALBUTEROL-IPRATROPIUM MDI INH INH SCH ×4 (05:02→21:15)
[2020-08-04 06:58] VITALS: BP 158/70
[2020-08-04] MEDS: LOSARTAN 100 MG TAB PO SCH (07:32)
[2020-08-04] MEDS: SENNOSIDES 8.6 MG TABLET PO SCH (07:32)
[2020-08-04] MEDS: AMLODIPINE 10 MG TAB PO SCH (07:32)
[2020-08-04] MEDS: FOLIC ACID 1 MG TABLET PO SCH (07:33)
[2020-08-04] MEDS: ENOXAPARIN 40 MG/0.4 ML SQ SCH (07:33)
[2020-08-04] MEDS: OMEPRAZOLE 20 MG CAPSULE.DR PO SCH (07:33)
[2020-08-04] MEDS: ACETAMINOPHEN 325 MG TABLET PO PRN (07:33)
[2020-08-04] MEDS: FLUTICASONE/VILANTEROL 200-25MCG/INH INH SCH (10:05)
[2020-08-04 12:36] VITALS: BP 124/71
[2020-08-04 18:32] VITALS: BP 123/63
[2020-08-04] MEDS: NICOTINE 14MG/24 HR PATCH.TD24 TD SCH (19:27)
[2020-08-04] MEDS: PRAVASTATIN 40 MG TABLET PO SCH (21:15)
[2020-08-04] MEDS: MELATONIN 5 MG TABLET PO SCH (21:15)
[2020-08-05 00:13] VITALS: BP 146/65
[2020-08-05] MEDS: ALBUTEROL-IPRATROPIUM MDI INH INH SCH ×4 (06:30→21:25)
[2020-08-05 06:33] VITALS: BP 143/70
[2020-08-05] MEDS: FLUTICASONE/VILANTEROL 200-25MCG/INH INH SCH (08:40)
[2020-08-05] MEDS: OMEPRAZOLE 20 MG CAPSULE.DR PO SCH (08:40)
[2020-08-05] MEDS: AMLODIPINE 10 MG TAB PO SCH (08:40)
[2020-08-05] MEDS: FOLIC ACID 1 MG TABLET PO SCH (08:40)
[2020-08-05] MEDS: LOSARTAN 100 MG TAB PO SCH (08:40)
[2020-08-05] MEDS: SENNOSIDES 8.6 MG TABLET PO SCH (08:41)
[2020-08-05] MEDS: ENOXAPARIN 40 MG/0.4 ML SQ SCH (08:41)
[2020-08-05 12:10] LABS: CREATININE 2.34 mg/dL (0.7-1.3)
[2020-08-05 12:12] VITALS: BP 110/66
[2020-08-05 12:14] LABS: INTERNATIONAL NORMALIZED RATIO 1.03 (0.93-1.1); PROTHROMBIN TIME 10.9 Seconds (9.6-11.5)
[2020-08-05] MEDS: SODIUM CHLORIDE 0.9% 1,000 ML IV SCH (17:04)
[2020-08-05 18:38] VITALS: BP 114/59
[2020-08-05 18:48] LABS: MICROSCOPIC NOT IND
[2020-08-05 18:51] LABS: CHLORIDE,URINE RANDOM 53 mmol/L; POTASSIUM,URINE RANDOM 37 mmol/L; SODIUM,URINE RANDOM 46 mmol/L
[2020-08-05] MEDS: NICOTINE 14MG/24 HR PATCH.TD24 TD SCH (19:39)
[2020-08-05] MEDS: ACETAMINOPHEN 325 MG TABLET PO PRN (21:25)
[2020-08-05] MEDS: MELATONIN 5 MG TABLET PO SCH (21:25)
[2020-08-05] MEDS: PRAVASTATIN 40 MG TABLET PO SCH (21:26)
[2020-08-06 02:09] VITALS: BP 125/64
[2020-08-06] MEDS: ACETAMINOPHEN 325 MG TABLET PO PRN (03:47)
[2020-08-06] MEDS: SODIUM CHLORIDE 0.9% 1,000 ML IV SCH ×2 (05:59→15:19)
[2020-08-06] MEDS: ALBUTEROL-IPRATROPIUM MDI INH INH SCH ×4 (06:00→19:34)
[2020-08-06 06:42] VITALS: BP 153/66
[2020-08-06] MEDS: SENNOSIDES 8.6 MG TABLET PO SCH (08:47)
[2020-08-06] MEDS: AMLODIPINE 10 MG TAB PO SCH (08:47)
[2020-08-06] MEDS: OMEPRAZOLE 20 MG CAPSULE.DR PO SCH (08:47)
[2020-08-06] MEDS: FOLIC ACID 1 MG TABLET PO SCH (08:47)
[2020-08-06] MEDS: ENOXAPARIN 30 MG/0.3 ML SQ SCH (08:48)
[2020-08-06] MEDS: FLUTICASONE/VILANTEROL 200-25MCG/INH INH SCH (08:48)
[2020-08-06 09:50] LABS: BASOPHILS % (AUTO) 1 % (0-1); EOSINOPHILS % (AUTO) 5 % (1-7); LYMPHOCYTES % (AUTO) 27 % (22-44); MEAN CORPUSCULAR HEMOGLOBIN 30.8 pg (27.5-34.5); MEAN CORPUSCULAR HGB CONC 34.7 g/dL (33.2-36.2); MEAN PLATELET VOLUME 7.5 fL (7.4-10.4); MONOCYTES % (AUTO) 8 % (2-9); NEUTROPHILS % (AUTO) 60 % (42-75); PLATELET COUNT 162 x10^3/uL (130-400); RED BLOOD COUNT 3.78 x10^6/uL (4.38-5.82); RED CELL DISTRIBUTION WIDTH 14.1 % (9.4-14.8)
[2020-08-06 09:52] LABS: MD NO
[2020-08-06 09:53] LABS: ALBUMIN 2.9 g/dL (3.4-5.0); ANION GAP 6 mmol/L (5-15); CALCIUM 8.8 mg/dL (8.5-10.1); CHLORIDE 109 mmol/L (98-107); CREATININE 2.06 mg/dL (0.7-1.3)
[2020-08-06 12:36] VITALS: BP 137/74
[2020-08-06 18:39] VITALS: BP 148/89
[2020-08-06] MEDS: PRAVASTATIN 40 MG TABLET PO SCH (19:31)
[2020-08-06] MEDS: MELATONIN 5 MG TABLET PO SCH (19:31)
[2020-08-06] MEDS: NICOTINE 14MG/24 HR PATCH.TD24 TD SCH (19:32)
[2020-08-06] MEDS: TRAZODONE 50MG TABLET PO PRN (19:35)
[2020-08-07 00:44] VITALS: BP 121/65
[2020-08-07] MEDS: LORazepam 0.5MG TABLET PO PRN (01:38)
[2020-08-07 04:30] LABS: BASOPHILS % (AUTO) 0 % (0-1); EOSINOPHILS % (AUTO) 6 % (1-7); LYMPHOCYTES % (AUTO) 26 % (22-44); MEAN CORPUSCULAR HEMOGLOBIN 30.9 pg (27.5-34.5); MEAN CORPUSCULAR HGB CONC 34.4 g/dL (33.2-36.2); MEAN PLATELET VOLUME 7.5 fL (7.4-10.4); MONOCYTES % (AUTO) 11 % (2-9); NEUTROPHILS % (AUTO) 57 % (42-75); PLATELET COUNT 156 x10^3/uL (130-400); RED BLOOD COUNT 3.48 x10^6/uL (4.38-5.82); RED CELL DISTRIBUTION WIDTH 14.1 % (9.4-14.8)
[2020-08-07 04:33] LABS: MD NO
[2020-08-07 04:37] LABS: ANION GAP 5 mmol/L (5-15); CALCIUM 8.7 mg/dL (8.5-10.1); CHLORIDE 107 mmol/L (98-107); CREATININE 1.74 mg/dL (0.7-1.3)
[2020-08-07 04:45] LABS: INTERNATIONAL NORMALIZED RATIO 1.01 (0.93-1.1); PROTHROMBIN TIME 10.7 Seconds (9.6-11.5)
[2020-08-07] MEDS: ALBUTEROL-IPRATROPIUM MDI INH INH SCH ×4 (06:10→19:50)
[2020-08-07] MEDS: SODIUM CHLORIDE 0.9% 1,000 ML IV SCH (06:10)
[2020-08-07] MEDS: ENOXAPARIN 30 MG/0.3 ML SQ SCH (09:00)
[2020-08-07] MEDS: SENNOSIDES 8.6 MG TABLET PO SCH (09:00)
[2020-08-07 09:24] VITALS: BP 128/67
[2020-08-07] MEDS: AMLODIPINE 10 MG TAB PO SCH (10:03)
[2020-08-07] MEDS: FOLIC ACID 1 MG TABLET PO SCH (10:04)
[2020-08-07] MEDS: OMEPRAZOLE 20 MG CAPSULE.DR PO SCH (10:04)
[2020-08-07] MEDS: FLUTICASONE/VILANTEROL 200-25MCG/INH INH SCH (10:12)
[2020-08-07 14:20] VITALS: BP 134/78
[2020-08-07 18:47] VITALS: BP 145/79
[2020-08-07] MEDS: MELATONIN 5 MG TABLET PO SCH (19:49)
[2020-08-07] MEDS: PRAVASTATIN 40 MG TABLET PO SCH (19:49)
[2020-08-07] MEDS: TEMAZEPAM 15 MG CAPSULE PO PRN (19:49)
[2020-08-07] MEDS: NICOTINE 14MG/24 HR PATCH.TD24 TD SCH (19:50)
[2020-08-08 00:28] VITALS: BP 121/70
[2020-08-08 05:21] LABS: BASOPHILS % (AUTO) 2 % (0-1); EOSINOPHILS % (AUTO) 5 % (1-7); LYMPHOCYTES % (AUTO) 28 % (22-44); MEAN CORPUSCULAR HEMOGLOBIN 30.8 pg (27.5-34.5); MEAN CORPUSCULAR HGB CONC 34.8 g/dL (33.2-36.2); MEAN PLATELET VOLUME 7.3 fL (7.4-10.4); MONOCYTES % (AUTO) 8 % (2-9); NEUTROPHILS % (AUTO) 58 % (42-75); PLATELET COUNT 193 x10^3/uL (130-400); RED BLOOD COUNT 3.76 x10^6/uL (4.38-5.82); RED CELL DISTRIBUTION WIDTH 14.3 % (9.4-14.8)
[2020-08-08 05:33] LABS: MD NO
[2020-08-08 05:34] LABS: ALBUMIN 2.9 g/dL (3.4-5.0); ANION GAP 5 mmol/L (5-15); CHLORIDE 110 mmol/L (98-107)
[2020-08-08 05:38] LABS: ALANINE AMINOTRANSFERASE 23 U/L (12-78); ALKALINE PHOSPHATASE 104 U/L (45-117); BILIRUBIN,TOTAL 0.4 mg/dL (0.2-1.0); CREATININE 1.46 mg/dL (0.7-1.3); TOTAL PROTEIN 6.5 g/dL (6.4-8.2)
[2020-08-08] MEDS: ALBUTEROL-IPRATROPIUM MDI INH INH SCH ×4 (06:18→19:28)
[2020-08-08] MEDS: SODIUM CHLORIDE 0.9% 1,000 ML IV SCH (06:19)
[2020-08-08 06:54] VITALS: BP 133/72
[2020-08-08] MEDS: ENOXAPARIN 30 MG/0.3 ML SQ SCH (08:42)
[2020-08-08] MEDS: SENNOSIDES 8.6 MG TABLET PO SCH (08:42)
[2020-08-08] MEDS: AMLODIPINE 10 MG TAB PO SCH (08:42)
[2020-08-08] MEDS: FOLIC ACID 1 MG TABLET PO SCH (08:42)
[2020-08-08] MEDS: OMEPRAZOLE 20 MG CAPSULE.DR PO SCH (08:42)
[2020-08-08] MEDS: FLUTICASONE/VILANTEROL 200-25MCG/INH INH SCH (09:21)
[2020-08-08 12:09] VITALS: BP 135/76
[2020-08-08 19:05] VITALS: BP 155/84
[2020-08-08] MEDS: MELATONIN 5 MG TABLET PO SCH (19:27)
[2020-08-08] MEDS: TEMAZEPAM 15 MG CAPSULE PO PRN (19:27)
[2020-08-08] MEDS: PRAVASTATIN 40 MG TABLET PO SCH (19:27)
[2020-08-08] MEDS: NICOTINE 14MG/24 HR PATCH.TD24 TD SCH (19:29)
[2020-08-09 00:16] VITALS: BP 138/76
[2020-08-09] MEDS: LORazepam 0.5MG TABLET PO PRN (02:54)
[2020-08-09] MEDS: SODIUM CHLORIDE 0.9% 1,000 ML IV SCH (02:54)
[2020-08-09 05:23] LABS: BASOPHILS % (AUTO) 1 % (0-1); EOSINOPHILS % (AUTO) 4 % (1-7); LYMPHOCYTES % (AUTO) 29 % (22-44); MEAN CORPUSCULAR HEMOGLOBIN 30.7 pg (27.5-34.5); MEAN CORPUSCULAR HGB CONC 34.7 g/dL (33.2-36.2); MEAN PLATELET VOLUME 7.2 fL (7.4-10.4); MONOCYTES % (AUTO) 9 % (2-9); NEUTROPHILS % (AUTO) 57 % (42-75); PLATELET COUNT 210 x10^3/uL (130-400); RED BLOOD COUNT 3.69 x10^6/uL (4.38-5.82); RED CELL DISTRIBUTION WIDTH 13.6 % (9.4-14.8)
[2020-08-09 05:28] LABS: MD NO
[2020-08-09 05:44] LABS: INTERNATIONAL NORMALIZED RATIO 1.05 (0.93-1.1); PROTHROMBIN TIME 11.1 Seconds (9.6-11.5)
[2020-08-09] MEDS: ALBUTEROL-IPRATROPIUM MDI INH INH SCH ×4 (06:06→20:56)
[2020-08-09 06:09] LABS: ALANINE AMINOTRANSFERASE 25 U/L (12-78); ALBUMIN 2.9 g/dL (3.4-5.0); ALKALINE PHOSPHATASE 101 U/L (45-117); ANION GAP 4 mmol/L (5-15); BILIRUBIN,TOTAL 0.3 mg/dL (0.2-1.0); CALCIUM 8.8 mg/dL (8.5-10.1); CHLORIDE 108 mmol/L (98-107); TOTAL PROTEIN 6.4 g/dL (6.4-8.2)
[2020-08-09 07:34] VITALS: BP 162/81
[2020-08-09] MEDS: SENNOSIDES 8.6 MG TABLET PO SCH (07:52)
[2020-08-09] MEDS: AMLODIPINE 10 MG TAB PO SCH (07:52)
[2020-08-09] MEDS: OMEPRAZOLE 20 MG CAPSULE.DR PO SCH (07:52)
[2020-08-09] MEDS: FOLIC ACID 1 MG TABLET PO SCH (07:52)
[2020-08-09] MEDS: FLUTICASONE/VILANTEROL 200-25MCG/INH INH SCH (07:53)
[2020-08-09] MEDS: ENOXAPARIN 40 MG/0.4 ML SQ SCH (07:53)
[2020-08-09 12:52] VITALS: BP 153/75
[2020-08-09 19:54] VITALS: BP 134/78
[2020-08-09] MEDS: NICOTINE 14MG/24 HR PATCH.TD24 TD SCH (20:56)
[2020-08-09] MEDS: MELATONIN 5 MG TABLET PO SCH (20:56)
[2020-08-09] MEDS: PRAVASTATIN 40 MG TABLET PO SCH (20:56)
[2020-08-10 00:30] VITALS: BP 146/70
[2020-08-10 07:19] VITALS: BP 157/65
[2020-08-10] MEDS: ALBUTEROL-IPRATROPIUM MDI INH INH SCH ×4 (09:00→20:39)
[2020-08-10] MEDS: AMLODIPINE 10 MG TAB PO SCH (10:07)
[2020-08-10] MEDS: BUPROPION SR 150 MG TABLET PO SCH (10:07)
[2020-08-10] MEDS: OMEPRAZOLE 20 MG CAPSULE.DR PO SCH (10:08)
[2020-08-10] MEDS: ENOXAPARIN 40 MG/0.4 ML SQ SCH (10:08)
[2020-08-10] MEDS: SENNOSIDES 8.6 MG TABLET PO SCH (10:08)
[2020-08-10] MEDS: FLUTICASONE/VILANTEROL 200-25MCG/INH INH SCH (11:46)
[2020-08-10 13:49] VITALS: BP 151/79
[2020-08-10 19:20] VITALS: BP 150/82
[2020-08-10] MEDS: NICOTINE 14MG/24 HR PATCH.TD24 TD SCH (20:40)
[2020-08-10] MEDS: MELATONIN 5 MG TABLET PO SCH (20:40)
[2020-08-10] MEDS: PRAVASTATIN 40 MG TABLET PO SCH (20:40)
[2020-08-11 01:48] VITALS: BP 138/81
[2020-08-11] MEDS: ALBUTEROL-IPRATROPIUM MDI INH INH SCH ×4 (05:03→21:15)
[2020-08-11 06:51] VITALS: BP 150/69
[2020-08-11] MEDS: ENOXAPARIN 40 MG/0.4 ML SQ SCH (09:18)
[2020-08-11] MEDS: BUPROPION SR 150 MG TABLET PO SCH (09:18)
[2020-08-11] MEDS: AMLODIPINE 10 MG TAB PO SCH (09:18)
[2020-08-11] MEDS: OMEPRAZOLE 20 MG CAPSULE.DR PO SCH (09:18)
[2020-08-11] MEDS: FLUTICASONE/VILANTEROL 200-25MCG/INH INH SCH (09:19)
[2020-08-11] MEDS: SENNOSIDES 8.6 MG TABLET PO SCH (09:19)
[2020-08-11 14:30] VITALS: BP 149/75
[2020-08-11] MEDS: NICOTINE 14MG/24 HR PATCH.TD24 TD SCH (19:07)
[2020-08-11 21:08] VITALS: BP 127/74
[2020-08-11] MEDS: PRAVASTATIN 40 MG TABLET PO SCH (21:15)
[2020-08-11] MEDS: MELATONIN 5 MG TABLET PO SCH (21:15)
[2020-08-12 02:07] VITALS: BP 155/70
[2020-08-12] MEDS: ALBUTEROL-IPRATROPIUM MDI INH INH SCH ×4 (05:46→20:49)
[2020-08-12 07:16] VITALS: BP 151/73
[2020-08-12] MEDS: ENOXAPARIN 40 MG/0.4 ML SQ SCH (09:00)
[2020-08-12] MEDS: FLUTICASONE/VILANTEROL 200-25MCG/INH INH SCH (10:26)
[2020-08-12] MEDS: BUPROPION SR 150 MG TABLET PO SCH (10:27)
[2020-08-12] MEDS: AMLODIPINE 10 MG TAB PO SCH (10:27)
[2020-08-12] MEDS: SENNOSIDES 8.6 MG TABLET PO SCH (10:27)
[2020-08-12] MEDS: OMEPRAZOLE 20 MG CAPSULE.DR PO SCH (10:27)
[2020-08-12 14:35] VITALS: BP 114/69
[2020-08-12] MEDS: LORazepam 0.5MG TABLET PO PRN (16:45)
[2020-08-12 19:50] VITALS: BP 132/79
[2020-08-12] MEDS: MELATONIN 5 MG TABLET PO SCH (20:46)
[2020-08-12] MEDS: NICOTINE 14MG/24 HR PATCH.TD24 TD SCH (20:46)
[2020-08-12] MEDS: PRAVASTATIN 40 MG TABLET PO SCH (20:46)
[2020-08-13 01:25] VITALS: BP 127/74
[2020-08-13] MEDS: ALBUTEROL-IPRATROPIUM MDI INH INH SCH ×4 (05:16→20:17)
[2020-08-13 07:42] VITALS: BP 126/76
[2020-08-13 07:49] LABS: BASOPHILS % (AUTO) 1 % (0-1); EOSINOPHILS % (AUTO) 2 % (1-7); LYMPHOCYTES % (AUTO) 23 % (22-44); MEAN CORPUSCULAR HEMOGLOBIN 31.3 pg (27.5-34.5); MEAN PLATELET VOLUME 6.8 fL (7.4-10.4); MONOCYTES % (AUTO) 9 % (2-9); NEUTROPHILS % (AUTO) 66 % (42-75); PLATELET COUNT 328 x10^3/uL (130-400); RED BLOOD COUNT 3.65 x10^6/uL (4.38-5.82); RED CELL DISTRIBUTION WIDTH 14.6 % (9.4-14.8)
[2020-08-13 07:52] LABS: MD NO
[2020-08-13 08:00] LABS: CHLORIDE 109 mmol/L (98-107)
[2020-08-13 08:15] LABS: ALANINE AMINOTRANSFERASE 19 U/L (12-78); ALBUMIN 3.1 g/dL (3.4-5.0); ALKALINE PHOSPHATASE 107 U/L (45-117); ANION GAP 7 mmol/L (5-15); BILIRUBIN,TOTAL 0.3 mg/dL (0.2-1.0); CALCIUM 8.8 mg/dL (8.5-10.1); CREATININE 1.28 mg/dL (0.7-1.3); TOTAL PROTEIN 6.4 g/dL (6.4-8.2)
[2020-08-13] MEDS: ENOXAPARIN 40 MG/0.4 ML SQ SCH (08:55)
[2020-08-13] MEDS: FLUTICASONE/VILANTEROL 200-25MCG/INH INH SCH (08:55)
[2020-08-13] MEDS: AMLODIPINE 10 MG TAB PO SCH (08:56)
[2020-08-13] MEDS: OMEPRAZOLE 20 MG CAPSULE.DR PO SCH (08:56)
[2020-08-13] MEDS: SENNOSIDES 8.6 MG TABLET PO SCH (08:56)
[2020-08-13] MEDS: BUPROPION SR 150 MG TABLET PO SCH (08:56)
[2020-08-13 12:12] VITALS: BP 142/64
[2020-08-13 19:46] VITALS: BP 148/74
[2020-08-13] MEDS: PRAVASTATIN 40 MG TABLET PO SCH (20:16)
[2020-08-13] MEDS: NICOTINE 14MG/24 HR PATCH.TD24 TD SCH (20:16)
[2020-08-13] MEDS: MELATONIN 5 MG TABLET PO SCH (20:17)
[2020-08-14 01:30] VITALS: BP 130/78
[2020-08-14] MEDS: ALBUTEROL-IPRATROPIUM MDI INH INH SCH ×4 (05:25→20:36)
[2020-08-14 06:55] VITALS: BP 121/79
[2020-08-14] MEDS: OMEPRAZOLE 20 MG CAPSULE.DR PO SCH (08:31)
[2020-08-14] MEDS: AMLODIPINE 10 MG TAB PO SCH (08:31)
[2020-08-14] MEDS: SENNOSIDES 8.6 MG TABLET PO SCH (08:31)
[2020-08-14] MEDS: ENOXAPARIN 40 MG/0.4 ML SQ SCH (08:32)
[2020-08-14] MEDS: FLUTICASONE/VILANTEROL 200-25MCG/INH INH SCH (08:32)
[2020-08-14] MEDS: BUPROPION SR 150 MG TABLET PO SCH (08:32)
[2020-08-14] MEDS ORDERED: SODIUM CHLORIDE NASAL SPRAY 45ML BOTTLE NAS PRN (12:00)
[2020-08-14 12:14] VITALS: BP 117/77
[2020-08-14 19:39] VITALS: BP 152/82
[2020-08-14] MEDS: PRAVASTATIN 40 MG TABLET PO SCH (20:35)
[2020-08-14] MEDS: NICOTINE 14MG/24 HR PATCH.TD24 TD SCH (20:35)
[2020-08-14] MEDS: MELATONIN 5 MG TABLET PO SCH (20:36)
[2020-08-15 00:20] VITALS: BP 126/75
[2020-08-15] MEDS: ALBUTEROL-IPRATROPIUM MDI INH INH SCH ×4 (05:59→19:56)
[2020-08-15 07:28] VITALS: BP 145/78
[2020-08-15] MEDS: SENNOSIDES 8.6 MG TABLET PO SCH (08:44)
[2020-08-15] MEDS: AMLODIPINE 10 MG TAB PO SCH (08:44)
[2020-08-15] MEDS: OMEPRAZOLE 20 MG CAPSULE.DR PO SCH (08:44)
[2020-08-15] MEDS: BUPROPION SR 150 MG TABLET PO SCH (08:45)
[2020-08-15] MEDS: ENOXAPARIN 40 MG/0.4 ML SQ SCH (08:45)
[2020-08-15] MEDS: FLUTICASONE/VILANTEROL 200-25MCG/INH INH SCH (08:46)
[2020-08-15 12:14] VITALS: BP 133/79
[2020-08-15] MEDS: ACETAMINOPHEN 325 MG TABLET PO PRN (12:14)
[2020-08-15 13:20] VITALS: BP 140/113
[2020-08-15 18:21] VITALS: BP 120/81
[2020-08-15] MEDS: MELATONIN 5 MG TABLET PO SCH (19:56)
[2020-08-15] MEDS: NICOTINE 14MG/24 HR PATCH.TD24 TD SCH (19:56)
[2020-08-15] MEDS: PRAVASTATIN 40 MG TABLET PO SCH (19:56)
[2020-08-16 00:01] VITALS: BP 130/67
[2020-08-16] MEDS: ALBUTEROL-IPRATROPIUM MDI INH INH SCH ×4 (05:27→20:53)
[2020-08-16 07:54] VITALS: BP 147/78
[2020-08-16] MEDS: AMLODIPINE 10 MG TAB PO SCH (08:17)
[2020-08-16] MEDS: OMEPRAZOLE 20 MG CAPSULE.DR PO SCH (08:17)
[2020-08-16] MEDS: SENNOSIDES 8.6 MG TABLET PO SCH (08:17)
[2020-08-16] MEDS: BUPROPION SR 150 MG TABLET PO SCH (08:17)
[2020-08-16] MEDS: FLUTICASONE/VILANTEROL 200-25MCG/INH INH SCH (08:18)
[2020-08-16] MEDS: ENOXAPARIN 40 MG/0.4 ML SQ SCH (08:18)
[2020-08-16 14:16] VITALS: BP 124/68
[2020-08-16 20:40] VITALS: BP 143/86
[2020-08-16] MEDS: MELATONIN 5 MG TABLET PO SCH (20:53)
[2020-08-16] MEDS: NICOTINE 14MG/24 HR PATCH.TD24 TD SCH (20:53)
[2020-08-16] MEDS: PRAVASTATIN 40 MG TABLET PO SCH (20:53)
[2020-08-17 00:57] VITALS: BP 131/73
[2020-08-17] MEDS: ACETAMINOPHEN 325 MG TABLET PO PRN (01:24)
[2020-08-17] MEDS: ALBUTEROL-IPRATROPIUM MDI INH INH SCH ×4 (05:42→20:01)
[2020-08-17 06:57] VITALS: BP_SYST 102; BP_SYST 124; BP_DIAS 61; BP_DIAS 76
[2020-08-17] MEDS: BUPROPION SR 150 MG TABLET PO SCH (07:58)
[2020-08-17] MEDS: AMLODIPINE 10 MG TAB PO SCH (07:58)
[2020-08-17] MEDS: OMEPRAZOLE 20 MG CAPSULE.DR PO SCH (07:59)
[2020-08-17] MEDS: ENOXAPARIN 40 MG/0.4 ML SQ SCH (07:59)
[2020-08-17] MEDS: FLUTICASONE/VILANTEROL 200-25MCG/INH INH SCH (07:59)
[2020-08-17] MEDS: SENNOSIDES 8.6 MG TABLET PO SCH (07:59)
[2020-08-17 13:05] VITALS: BP 153/72
[2020-08-17] MEDS: PRAVASTATIN 40 MG TABLET PO SCH (19:54)
[2020-08-17] MEDS: MELATONIN 5 MG TABLET PO SCH (19:54)
[2020-08-17] MEDS: NICOTINE 14MG/24 HR PATCH.TD24 TD SCH (19:55)
[2020-08-17 20:01] VITALS: BP 161/80
[2020-08-18 01:32] VITALS: BP 135/65
[2020-08-18] MEDS: ALBUTEROL-IPRATROPIUM MDI INH INH SCH ×4 (05:40→20:35)
[2020-08-18 07:47] VITALS: BP 143/82
[2020-08-18] MEDS: BUPROPION SR 150 MG TABLET PO SCH (07:49)
[2020-08-18] MEDS: FLUTICASONE/VILANTEROL 200-25MCG/INH INH SCH (07:49)
[2020-08-18] MEDS: AMLODIPINE 10 MG TAB PO SCH (07:49)
[2020-08-18] MEDS: SENNOSIDES 8.6 MG TABLET PO SCH (07:49)
[2020-08-18] MEDS: ENOXAPARIN 40 MG/0.4 ML SQ SCH (07:50)
[2020-08-18] MEDS: OMEPRAZOLE 20 MG CAPSULE.DR PO SCH (07:50)
[2020-08-18 14:30] VITALS: BP 120/81
[2020-08-18 18:56] VITALS: BP 144/78
[2020-08-18] MEDS: MELATONIN 5 MG TABLET PO SCH (20:34)
[2020-08-18] MEDS: PRAVASTATIN 40 MG TABLET PO SCH (20:34)
[2020-08-18] MEDS: NICOTINE 14MG/24 HR PATCH.TD24 TD SCH ×2 (20:35→20:37)
[2020-08-19 00:38] VITALS: BP 154/71
[2020-08-19] MEDS: ALBUTEROL-IPRATROPIUM MDI INH INH SCH ×4 (06:00→21:00)
[2020-08-19 06:40] VITALS: BP 145/76
[2020-08-19 06:51] VITALS: BP 134/78
[2020-08-19] MEDS: BUPROPION SR 150 MG TABLET PO SCH (08:12)
[2020-08-19] MEDS: AMLODIPINE 10 MG TAB PO SCH (08:12)
[2020-08-19] MEDS: SENNOSIDES 8.6 MG TABLET PO SCH (08:12)
[2020-08-19] MEDS: OMEPRAZOLE 20 MG CAPSULE.DR PO SCH (08:13)
[2020-08-19] MEDS: FLUTICASONE/VILANTEROL 200-25MCG/INH INH SCH (08:14)
[2020-08-19] MEDS: ENOXAPARIN 40 MG/0.4 ML SQ SCH (08:14)
[2020-08-19 12:54] VITALS: BP 131/71
[2020-08-19] MEDS: PRAVASTATIN 40 MG TABLET PO SCH (20:51)
[2020-08-19] MEDS: MELATONIN 5 MG TABLET PO SCH (20:51)
[2020-08-19] MEDS: NICOTINE 14MG/24 HR PATCH.TD24 TD SCH (20:51)
[2020-08-20] MEDS: ALBUTEROL-IPRATROPIUM MDI INH INH SCH ×4 (05:53→20:26)
[2020-08-20 08:04] VITALS: BP 124/79
[2020-08-20] MEDS: OMEPRAZOLE 20 MG CAPSULE.DR PO SCH (09:27)
[2020-08-20] MEDS: BUPROPION SR 150 MG TABLET PO SCH (09:27)
[2020-08-20] MEDS: ENOXAPARIN 40 MG/0.4 ML SQ SCH (09:28)
[2020-08-20] MEDS: AMLODIPINE 10 MG TAB PO SCH (09:28)
[2020-08-20] MEDS: SENNOSIDES 8.6 MG TABLET PO SCH (09:28)
[2020-08-20] MEDS: FLUTICASONE/VILANTEROL 200-25MCG/INH INH SCH (09:34)
[2020-08-20] MEDS: ALBUTEROL HFA 90 MCG/SPRAY INH PRN ×2 (11:34→11:38)
[2020-08-20 14:12] VITALS: BP 128/76
[2020-08-20 19:50] VITALS: BP 150/99
[2020-08-20] MEDS: NICOTINE 14MG/24 HR PATCH.TD24 TD SCH (20:26)
[2020-08-20] MEDS: MELATONIN 5 MG TABLET PO SCH (20:26)
[2020-08-20] MEDS: PRAVASTATIN 40 MG TABLET PO SCH (20:26)
[2020-08-21 01:23] VITALS: BP 143/65
[2020-08-21] MEDS: ALBUTEROL-IPRATROPIUM MDI INH INH SCH ×4 (06:21→20:18)
[2020-08-21 07:07] VITALS: BP 137/77
[2020-08-21] MEDS: AMLODIPINE 10 MG TAB PO SCH (08:53)
[2020-08-21] MEDS: BUPROPION SR 150 MG TABLET PO SCH (08:53)
[2020-08-21] MEDS: ENOXAPARIN 40 MG/0.4 ML SQ SCH (08:53)
[2020-08-21] MEDS: SENNOSIDES 8.6 MG TABLET PO SCH (08:53)
[2020-08-21] MEDS: OMEPRAZOLE 20 MG CAPSULE.DR PO SCH (08:53)
[2020-08-21] MEDS: FLUTICASONE/VILANTEROL 200-25MCG/INH INH SCH (09:00)
[2020-08-21] MEDS ORDERED: BUPR150T73 PO (12:26)
[2020-08-21] MEDS ORDERED: ALBU18HF INH (12:26)
[2020-08-21] MEDS ORDERED: NICO-486 TD (12:26)
[2020-08-21 12:50] VITALS: BP 148/77
[2020-08-21 19:48] VITALS: BP 130/75
[2020-08-21] MEDS: NICOTINE 14MG/24 HR PATCH.TD24 TD SCH (20:18)
[2020-08-21] MEDS: MELATONIN 5 MG TABLET PO SCH (20:18)
[2020-08-21] MEDS: PRAVASTATIN 40 MG TABLET PO SCH (20:18)
[2020-08-22 02:13] VITALS: BP 119/72
[2020-08-22] MEDS: TEMAZEPAM 15 MG CAPSULE PO PRN (03:32)
[2020-08-22] MEDS: ALBUTEROL-IPRATROPIUM MDI INH INH SCH ×4 (05:03→19:58)
[2020-08-22 05:28] LABS: CREATININE 1.33 mg/dL (0.7-1.3)
[2020-08-22 06:33] VITALS: BP 151/67
[2020-08-22] MEDS: SENNOSIDES 8.6 MG TABLET PO SCH (09:00)
[2020-08-22] MEDS: FLUTICASONE/VILANTEROL 200-25MCG/INH INH SCH (09:18)
[2020-08-22] MEDS: ENOXAPARIN 40 MG/0.4 ML SQ SCH (09:19)
[2020-08-22] MEDS: OMEPRAZOLE 20 MG CAPSULE.DR PO SCH (09:19)
[2020-08-22] MEDS: BUPROPION SR 150 MG TABLET PO SCH (09:19)
[2020-08-22] MEDS: AMLODIPINE 10 MG TAB PO SCH (09:19)
[2020-08-22 13:15] VITALS: BP 150/78
[2020-08-22] MEDS: PRAVASTATIN 40 MG TABLET PO SCH (19:58)
[2020-08-22] MEDS: MELATONIN 5 MG TABLET PO SCH (19:58)
[2020-08-22] MEDS: NICOTINE 14MG/24 HR PATCH.TD24 TD SCH (19:59)
[2020-08-22 20:05] VITALS: BP 130/73
[2020-08-23 00:19] VITALS: BP 114/72
[2020-08-23] MEDS: ALBUTEROL-IPRATROPIUM MDI INH INH SCH ×3 (05:00→15:22)
[2020-08-23 07:14] VITALS: BP 128/80
[2020-08-23] MEDS: SENNOSIDES 8.6 MG TABLET PO SCH (07:49)
[2020-08-23] MEDS: BUPROPION SR 150 MG TABLET PO SCH (07:49)
[2020-08-23] MEDS: OMEPRAZOLE 20 MG CAPSULE.DR PO SCH (07:49)
[2020-08-23] MEDS: AMLODIPINE 10 MG TAB PO SCH (07:49)
[2020-08-23] MEDS: FLUTICASONE/VILANTEROL 200-25MCG/INH INH SCH (07:49)
[2020-08-23] MEDS: ENOXAPARIN 40 MG/0.4 ML SQ SCH (07:50)
[2020-08-23 10:38] LABS: QUANTIFERON TB Ag1-NIL 0.61 (0.000-0.000)
[2020-08-23 13:48] VITALS: BP 115/75
== END 2020-08-23 17:48 | DRG 177 ==
LOC: ED 17:42 → EDIP 22:07 → 3N 07-12 16:45 → 4EST 08-09 17:59 → 3N 08-15 13:50
PROVIDERS: ADMIT Family Medicine; ATTEND Internal Medicine
DX: U07.1 COVID-19 (principal); J12.89 Other viral pneumonia; A41.89 Other specified sepsis; J12.82 Pneumonia due to coronavirus disease 2019; J96.21 Acute and chronic respiratory failure with hypoxia; N17.0 Acute kidney failure with tubular necrosis; E87.1 Hypo-osmolality and hyponatremia; G91.2 (Idiopathic) normal pressure hydrocephalus; J44.0 Chronic obstructive pulmonary disease with (acute) lower respiratory infection; J44.1 Chronic obstructive pulmonary disease with (acute) exacerbation; F32.9 Major depressive disorder, single episode, unspecified; G62.9 Polyneuropathy, unspecified; D64.9 Anemia, unspecified; E78.5 Hyperlipidemia, unspecified; D72.829 Elevated white blood cell count, unspecified; F17.200 Nicotine dependence, unspecified, uncomplicated; G89.29 Other chronic pain; I10 Essential (primary) hypertension; T18.108A Unspecified foreign body in esophagus causing other injury, initial encounter; M54.9 Dorsalgia, unspecified; J84.10 Pulmonary fibrosis, unspecified; K59.00 Constipation, unspecified; M10.9 Gout, unspecified; Z85.46 Personal history of malignant neoplasm of prostate; Z86.11 Personal history of tuberculosis; Z59.0 Homelessness; Z79.899 Other long term (current) drug therapy; Z79.01 Long term (current) use of anticoagulants; Z79.891 Long term (current) use of opiate analgesic; Z79.2 Long term (current) use of antibiotics
CPT/HCPCS: 36415; 71045; 76770; 80048; 80053; 80069; 81003; 82436; 82565; 82570; 82728; 82962; 83605; 83615; 83735; 84133; 84145; 84300; 84484; 85025; 85379; 85384; 85610; 85730; 86140; 86480; 87040; 87635; 93005; 96365; 99285; G0378; J0456; J0696; J1100; J1644; J1650; J7030; J7050; U0003